=== PATIENT | female | born 1945 | race Caucasian/White ===

== ENCOUNTER 2019-10-06 20:55 | Inpatient (IN) | payer OTHER ==
[2019-10-06 22:41] LABS: BASO % 0.8 % (0-2.0); HEMATOCRIT 31.1 % (32.4-45.2); HEMOGLOBIN 9.8 GM/dL (10.7-15.3); MCH 35.1 pg (25.7-33.7); MCHC 31.6 g/dl (32.0-36.0); MEAN PLT VOLUME 8.7 fl (7.5-11.1); MONO % 5.9 % (3.8-10.2); NEUT % 87.3 % (42.8-82.8); PLATELET COUNT 365 K/MM3 (134-434); RDW 20.4 % (11.6-15.6); WHITE BLOOD COUNT 9.9 K/mm3 (4.0-10.0)
[2019-10-06 22:49] LABS: INR 1.96 (0.83-1.09); PROTHROMBIN TIME (PATIENT) 23.3 SEC (9.7-13.0)
[2019-10-06 22:52] LABS: ACTIVATED PTT 34.1 SECONDS (25.2-36.5)
[2019-10-06 22:59] LABS: VENOUS PO2 < 49 mmHg (28-48)
[2019-10-06 23:00] LABS: VENOUS BASE EXCESS 7.1 mmol/L (-2-2)
[2019-10-06 23:01] LABS: VENOUS PC02 > 100 mmHg (38-52)
[2019-10-06 23:08] LABS: MAGNESIUM 1.8 mg/dL (1.8-2.4); N-TERMINAL BNP 11440.2 pg/ml (5-125)
[2019-10-06 23:10] LABS: ALBUMIN 2.3 g/dl (3.4-5.0); BILIRUBIN,TOTAL 0.8 mg/dL (0.2-1); BLOOD UREA NITROGEN 20.6 mg/dL (7-18); CALCIUM 8.2 mg/dL (8.5-10.1); POTASSIUM 4.3 mmol/L (3.5-5.1); TOT PROT 6.2 g/dl (6.4-8.2)
[2019-10-06] MEDS ORDERED: FUROSEMIDE 40 MG/4 ML INJECTABLE VIAL IVPUSH ONE (23:18)
[2019-10-06 23:42] LABS: ARTERIAL BLD GAS O2 SATURATION 96.5 % (95-98); ARTERIAL BLOOD GAS BASE EXCESS 3.7 mmol/L (-2-2); ARTERIAL BLOOD GAS PO2 108 mmHg (80-100); ARTERIAL BLOOD GAS pH 7.24 (7.35-7.45); CARBOXYHEMOGLOBIN 2.1 % (0-2)
[2019-10-06 23:45] LABS: ARTERIAL BLOOD GAS PCO2 78.6 mmHg (35-45)
[2019-10-06 23:46] LABS: ANISOCYTOSIS 2+; OVALOCYTE 1+; TEAR DROP CELLS 1+
[2019-10-06 23:47] LABS: MACROCYTOSIS 3+; PLATELET ESTIMATE ADEQUATE
[2019-10-07] MEDS ORDERED: FUROSEMIDE 40 MG/4 ML INJECTABLE VIAL ONE ×3 (00:23→10:24)
[2019-10-07] MEDS ORDERED: FUROSEMIDE 40 MG/4 ML INJECTABLE VIAL IVPUSH ONE (00:40)
[2019-10-07 01:57] LABS: EPI CELLS 12 /uL (0-25.1); HYALINE CASTS 5 /uL (0-3.1); URINE APPEARANCE CLOUDY; URINE BACTERIA 364 /uL (0-1359); URINE BILIRUBIN 1+ (NEGATIVE); URINE COLOR DK YELLOW; URINE GLUCOSE (UA) NEGATIVE (NEGATIVE); URINE KETONE NEGATIVE (NEGATIVE); URINE LEUK ESTERASE NEGATIVE (NEGATIVE); URINE NITRITE NEGATIVE (NEGATIVE); URINE PROTEIN 2+ (NEGATIVE); URINE RBC 27 /uL (0-23.9); URINE WBC 17 /uL (0-25.8)
[2019-10-07 03:28] LABS: ARTERIAL BLOOD GAS pH 7.28 (7.35-7.45)
[2019-10-07 03:29] LABS: ARTERIAL BLD GAS O2 SATURATION 97.3 % (95-98); ARTERIAL BLOOD GAS BASE EXCESS 9.9 mmol/L (-2-2); CARBOXYHEMOGLOBIN 1.6 % (0-2)
[2019-10-07 03:49] LABS: ARTERIAL BLOOD GAS PCO2 86.7 mmHg (35-45)
[2019-10-07] MEDS ORDERED: AZITHROMYCIN IVPB 500 MG/250 ML BAG IVPB ONE ×2 (05:30→06:25)
[2019-10-07 08:29] LABS: BASO % 0.9 % (0-2.0); EOS % 1.1 % (0-4.5); HEMATOCRIT 32.7 % (32.4-45.2); HEMOGLOBIN 10.3 GM/dL (10.7-15.3); LYMPH % 7.2 % (8-40); MCH 33.5 pg (25.7-33.7); MCHC 31.4 g/dl (32.0-36.0); MEAN PLT VOLUME 8.7 fl (7.5-11.1); MONO % 13.9 % (3.8-10.2); NEUT % 76.9 % (42.8-82.8); PLATELET COUNT 331 K/MM3 (134-434); RBC 3.06 M/mm3 (3.60-5.2); RDW 20.5 % (11.6-15.6); WHITE BLOOD COUNT 11.6 K/mm3 (4.0-10.0)
[2019-10-07] MEDS ORDERED: DOPAMINE 400 MG/D5W - 400,000 MCG/250 ML INFUS.BAG IVPB SCH (09:45)
[2019-10-07 09:47] LABS: ALBUMIN 2.4 g/dl (3.4-5.0); BILIRUBIN,TOTAL 0.8 mg/dL (0.2-1); BLOOD UREA NITROGEN 22.3 mg/dL (7-18); CALCIUM 8.1 mg/dL (8.5-10.1); CREATININE 0.9 mg/dL (0.55-1.3); MAGNESIUM 1.8 mg/dL (1.8-2.4); PHOSPHOROUS 4.8 mg/dL (2.5-4.9); POTASSIUM 4.9 mmol/L (3.5-5.1); TOT PROT 6.4 g/dl (6.4-8.2)
[2019-10-07] MEDS ORDERED: FUROSEMIDE 100 MG/10 ML INJECTABLE VIAL IVPB ONE (11:00)
[2019-10-07 11:19] LABS: ARTERIAL BLOOD GAS PO2 87.7 mmHg (80-100); ARTERIAL BLOOD GAS pH 7.29 (7.35-7.45)
[2019-10-07 11:20] LABS: ARTERIAL BLD GAS O2 SATURATION 95.1 % (95-98); ARTERIAL BLOOD GAS BASE EXCESS 11 mmol/L (-2-2)
[2019-10-07] MEDS: MUPIROCIN 2% TOPICAL OINTMENT FOR DECOLONIZATION NS SCH (12:29)
[2019-10-07] MEDS: INSULIN SLIDING SCALE (NOVOLOG) 1 VIAL SQ SCH ×2 (12:29→17:10)
[2019-10-07] MEDS ORDERED: DEXTROSE 50%-WATER - 25 GM/50 ML VIAL IVPUSH PRN (21:35)
[2019-10-07] MEDS ORDERED: ENOXAPARIN NA (PORCINE) 40 MG/0.4 ML DISP.SYRIN SQ SCH (22:00)
[2019-10-08] MEDS: ENOXAPARIN NA (PORCINE) 100 MG/1 ML DISP.SYRIN SQ SCH ×2 (00:15→10:25)
[2019-10-08 07:54] LABS: INR 1.64 (0.83-1.09); PROTHROMBIN TIME (PATIENT) 19.4 SEC (9.7-13.0)
[2019-10-08 07:56] LABS: ACTIVATED PTT 39.9 SECONDS (25.2-36.5)
[2019-10-08 08:14] LABS: ALBUMIN 2.4 g/dl (3.4-5.0); BILIRUBIN,TOTAL 0.6 mg/dL (0.2-1); BLOOD UREA NITROGEN 24.5 mg/dL (7-18); CALCIUM 8.3 mg/dL (8.5-10.1); CREATININE 1.1 mg/dL (0.55-1.3); MAGNESIUM 1.9 mg/dL (1.8-2.4); POTASSIUM 4.4 mmol/L (3.5-5.1); TOT PROT 6.4 g/dl (6.4-8.2)
[2019-10-08] MEDS ORDERED: DEXTROSE 50%-WATER - 25 GM/50 ML VIAL ONE (08:58)
[2019-10-08] MEDS: MUPIROCIN 2% TOPICAL OINTMENT FOR DECOLONIZATION NS SCH ×2 (09:41→22:32)
[2019-10-08] MEDS: INSULIN SLIDING SCALE (NOVOLOG) 1 VIAL SQ SCH ×3 (09:41→16:24)
[2019-10-08] MEDS: CHLORHEXIDINE GLUCONATE 4% CLEANSER FOR DECOLONIZATION TP SCH (22:32)
[2019-10-08] MEDS: CARVEDILOL 6.25 MG TABLET (FP) PO SCH (22:32)
[2019-10-08] MEDS: APIXABAN 2.5 MG TABLET PO SCH (22:33)
[2019-10-08] MEDS: levETIRAcetam 500 MG TABLET (FP) PO SCH (22:33)
[2019-10-09 07:17] LABS: HEMOGLOBIN 9.2 GM/dL (10.7-15.3); MCH 37.8 pg (25.7-33.7); MCHC 34.2 g/dl (32.0-36.0); MEAN CELL VOLUME 110.6 fl (80-96); MEAN PLT VOLUME 8.3 fl (7.5-11.1); PLATELET COUNT 345 K/MM3 (134-434); RBC 2.44 M/mm3 (3.60-5.2); RDW 19.5 % (11.6-15.6); WHITE BLOOD COUNT 7.8 K/mm3 (4.0-10.0)
[2019-10-09 07:51] LABS: CALCIUM 8.4 mg/dL (8.5-10.1); CREATININE 1.3 mg/dL (0.55-1.3); MAGNESIUM 1.9 mg/dL (1.8-2.4); PHOSPHOROUS 3.7 mg/dL (2.5-4.9); POTASSIUM 4.1 mmol/L (3.5-5.1)
[2019-10-09] MEDS: INSULIN SLIDING SCALE (NOVOLOG) 1 VIAL SQ SCH ×3 (08:00→17:36)
[2019-10-09] MEDS: FUROSEMIDE 40 MG TABLET (FP) PO SCH (10:20)
[2019-10-09] MEDS: MUPIROCIN 2% TOPICAL OINTMENT FOR DECOLONIZATION NS SCH ×2 (10:20→21:40)
[2019-10-09] MEDS: CARVEDILOL 6.25 MG TABLET (FP) PO SCH ×2 (10:20→21:41)
[2019-10-09] MEDS: levETIRAcetam 500 MG TABLET (FP) PO SCH ×2 (10:20→21:41)
[2019-10-09] MEDS: APIXABAN 2.5 MG TABLET PO SCH ×2 (10:20→21:41)
[2019-10-09] MEDS: HYDROXYUREA 500 MG CAPSULE PO SCH (10:20)
[2019-10-09] MEDS: LINEZOLID 600 MG PREMIX BAG 600 MG/300 ML BAG IVPB SCH ×2 (11:00→21:41)
[2019-10-09] MEDS: CHLORHEXIDINE GLUCONATE 4% CLEANSER FOR DECOLONIZATION TP SCH (21:41)
[2019-10-10 07:07] LABS: HEMATOCRIT 28.8 % (32.4-45.2); HEMOGLOBIN 9.4 GM/dL (10.7-15.3); MCH 35.1 pg (25.7-33.7); MCHC 32.7 g/dl (32.0-36.0); MEAN CELL VOLUME 107.3 fl (80-96); MEAN PLT VOLUME 8.6 fl (7.5-11.1); PLATELET COUNT 338 K/MM3 (134-434); RBC 2.68 M/mm3 (3.60-5.2); RDW 19.9 % (11.6-15.6); WHITE BLOOD COUNT 6.9 K/mm3 (4.0-10.0)
[2019-10-10 07:35] LABS: ALBUMIN 2.4 g/dl (3.4-5.0); BILIRUBIN,TOTAL 0.9 mg/dL (0.2-1); CALCIUM 8.3 mg/dL (8.5-10.1); CREATININE 1.3 mg/dL (0.55-1.3); MAGNESIUM 1.8 mg/dL (1.8-2.4); POTASSIUM 4.1 mmol/L (3.5-5.1); TOT PROT 6.4 g/dl (6.4-8.2)
[2019-10-10] MEDS: INSULIN SLIDING SCALE (NOVOLOG) 1 VIAL SQ SCH ×3 (07:57→16:37)
[2019-10-10] MEDS: MUPIROCIN 2% TOPICAL OINTMENT FOR DECOLONIZATION NS SCH ×2 (09:40→22:30)
[2019-10-10] MEDS: APIXABAN 2.5 MG TABLET PO SCH ×2 (09:40→22:30)
[2019-10-10] MEDS: CARVEDILOL 6.25 MG TABLET (FP) PO SCH ×2 (09:40→22:30)
[2019-10-10] MEDS: FUROSEMIDE 40 MG TABLET (FP) PO SCH (09:41)
[2019-10-10] MEDS: HYDROXYUREA 500 MG CAPSULE PO SCH (09:41)
[2019-10-10] MEDS: levETIRAcetam 500 MG TABLET (FP) PO SCH ×2 (09:41→22:30)
[2019-10-10] MEDS ORDERED: NYSTATIN POWDER 100,000 UNITS/GM - 15 GM TOPICAL POWDER TP ONE (18:16)
[2019-10-10] MEDS: CHLORHEXIDINE GLUCONATE 4% CLEANSER FOR DECOLONIZATION TP SCH (22:30)
[2019-10-11] MEDS: INSULIN SLIDING SCALE (NOVOLOG) 1 VIAL SQ SCH ×3 (12:29→17:30)
[2019-10-11] MEDS: APIXABAN 2.5 MG TABLET PO SCH ×2 (12:38→22:20)
[2019-10-11] MEDS: HYDROXYUREA 500 MG CAPSULE PO SCH (12:39)
[2019-10-11] MEDS: CARVEDILOL 6.25 MG TABLET (FP) PO SCH ×2 (12:39→22:20)
[2019-10-11] MEDS: FUROSEMIDE 40 MG TABLET (FP) PO SCH (12:39)
[2019-10-11] MEDS: MUPIROCIN 2% TOPICAL OINTMENT FOR DECOLONIZATION NS SCH ×2 (12:41→20:20)
[2019-10-11] MEDS: LINEZOLID 600 MG PREMIX BAG 600 MG/300 ML BAG IVPB SCH ×2 (12:41→22:55)
[2019-10-11] MEDS: levETIRAcetam 500 MG TABLET (FP) PO SCH (12:42)
[2019-10-11] MEDS ORDERED: MAGNESIUM SULF 50% (8.12 MEQ/2 ML-1 GM VIAL) IVPB ONE (13:15)
[2019-10-11] MEDS: CHLORHEXIDINE GLUCONATE 4% CLEANSER FOR DECOLONIZATION TP SCH (22:20)
[2019-10-12] MEDS: INSULIN SLIDING SCALE (NOVOLOG) 1 VIAL SQ SCH ×3 (08:07→17:30)
[2019-10-12] MEDS: APIXABAN 2.5 MG TABLET PO SCH ×2 (10:23→23:01)
[2019-10-12] MEDS: FUROSEMIDE 40 MG TABLET (FP) PO SCH (10:23)
[2019-10-12] MEDS: CARVEDILOL 6.25 MG TABLET (FP) PO SCH ×2 (10:23→23:00)
[2019-10-12] MEDS: LINEZOLID 600 MG PREMIX BAG 600 MG/300 ML BAG IVPB SCH ×2 (10:24→23:03)
[2019-10-12] MEDS: HYDROXYUREA 500 MG CAPSULE PO SCH (10:25)
[2019-10-12] MEDS ORDERED: LORazepam 2 MG/ML SDV VIAL IVPUSH ONE (20:34)
[2019-10-12] MEDS ORDERED: LORazepam 2 MG/ML SDV VIAL ONE (20:46)
[2019-10-12] MEDS ORDERED: APIXABAN 2.5 MG TABLET ONE (22:49)
[2019-10-12] MEDS: MUPIROCIN 2% TOPICAL OINTMENT FOR DECOLONIZATION NS SCH (23:04)
[2019-10-12] MEDS: CHLORHEXIDINE GLUCONATE 4% CLEANSER FOR DECOLONIZATION TP SCH (23:04)
[2019-10-13 06:39] LABS: HEMATOCRIT 28.9 % (32.4-45.2); HEMOGLOBIN 9.7 GM/dL (10.7-15.3); MCH 36.5 pg (25.7-33.7); MCHC 33.5 g/dl (32.0-36.0); MEAN CELL VOLUME 108.9 fl (80-96); MEAN PLT VOLUME 8.5 fl (7.5-11.1); PLATELET COUNT 354 K/MM3 (134-434); RBC 2.66 M/mm3 (3.60-5.2); RDW 19.6 % (11.6-15.6); WHITE BLOOD COUNT 6.3 K/mm3 (4.0-10.0)
[2019-10-13] MEDS ORDERED: APIXABAN 5 MG TABLET ONE (09:02)
[2019-10-13] MEDS: INSULIN SLIDING SCALE (NOVOLOG) 1 VIAL SQ SCH (22:49)
[2019-10-13] MEDS: LINEZOLID 600 MG PREMIX BAG 600 MG/300 ML BAG IVPB SCH (22:50)
[2019-10-13] MEDS: CARVEDILOL 6.25 MG TABLET (FP) PO SCH (22:50)
[2019-10-13] MEDS: APIXABAN 2.5 MG TABLET PO SCH (22:50)
[2019-10-14] MEDS: INSULIN SLIDING SCALE (NOVOLOG) 1 VIAL SQ SCH ×4 (06:30→16:51)
[2019-10-14 09:59] LABS: BASO % 0.9 % (0-2.0); HEMATOCRIT 32.6 % (32.4-45.2); HEMOGLOBIN 10.3 GM/dL (10.7-15.3); LYMPH % 12.2 % (8-40); MCH 35.2 pg (25.7-33.7); MCHC 31.5 g/dl (32.0-36.0); MEAN CELL VOLUME 111.7 fl (80-96); MEAN PLT VOLUME 9.2 fl (7.5-11.1); MONO % 11.7 % (3.8-10.2); NEUT % 63.2 % (42.8-82.8); PLATELET COUNT 353 K/MM3 (134-434); RBC 2.92 M/mm3 (3.60-5.2); RDW 19.8 % (11.6-15.6); WHITE BLOOD COUNT 7.1 K/mm3 (4.0-10.0)
[2019-10-14 10:33] LABS: ALBUMIN 2.2 g/dl (3.4-5.0); BILIRUBIN,TOTAL 0.6 mg/dL (0.2-1); BLOOD UREA NITROGEN 34.3 mg/dL (7-18); CALCIUM 8.3 mg/dL (8.5-10.1); CREATININE 1.2 mg/dL (0.55-1.3); POTASSIUM 4.6 mmol/L (3.5-5.1); TOT PROT 6.3 g/dl (6.4-8.2)
[2019-10-14] MEDS ORDERED: PT OWN MED DRAWER 7, Y5N ONE ×5 (10:33→22:32)
[2019-10-14] MEDS: LINEZOLID 600 MG PREMIX BAG 600 MG/300 ML BAG IVPB SCH ×3 (10:43→21:36)
[2019-10-14] MEDS: CARVEDILOL 6.25 MG TABLET (FP) PO SCH ×2 (10:44→10:45)
[2019-10-14] MEDS: FUROSEMIDE 40 MG TABLET (FP) PO SCH ×2 (10:44)
[2019-10-14] MEDS: APIXABAN 2.5 MG TABLET PO SCH ×2 (10:44)
[2019-10-14] MEDS: HYDROXYUREA 500 MG CAPSULE PO SCH ×2 (10:44)
[2019-10-14 11:43] LABS: MACROCYTOSIS 2+; OVALOCYTE 1+; TEAR DROP CELLS 1+
[2019-10-14] MEDS ORDERED: PNEUMOC 13-VAL CONJ-DIP CRM/PF 0.5 ML DISP.SYRIN IM ONE (17:00)
[2019-10-14] MEDS ORDERED: HEPARIN NA (PORCINE) 5,000 UNITS/ML 1ML VIAL IVPUSH PRN ×2 (17:53)
[2019-10-14] MEDS: HEPARIN - 25,000 UNIT in SODIUM CHLORIDE 495 ML IV SCH (19:07)
[2019-10-14 19:48] LABS: INR 1.68 (0.83-1.09); PROTHROMBIN TIME (PATIENT) 19.9 SEC (9.7-13.0)
[2019-10-14] MEDS: CARVEDILOL 12.5 MG TABLET (FP) PO SCH ×2 (21:37→22:53)
[2019-10-14] MEDS ORDERED: FUROSEMIDE 40 MG TABLET (FP) PO SCH (22:00)
[2019-10-15] MEDS ORDERED: diphenhydrAMINE HCL 25 MG CAPSULE (FP) PO ONE (05:17)
[2019-10-15] MEDS ORDERED: HYDROCORTISONE 0.5% TOPICAL CREAM 30 GM TUBE TP ONE (05:20)
[2019-10-15] MEDS: FUROSEMIDE 40 MG/4 ML INJECTABLE VIAL IVPUSH SCH ×2 (06:15→14:36)
[2019-10-15] MEDS: INSULIN SLIDING SCALE (NOVOLOG) 1 VIAL SQ SCH ×3 (07:03→17:27)
[2019-10-15 10:14] LABS: HEMATOCRIT 29.7 % (32.4-45.2); HEMOGLOBIN 9.9 GM/dL (10.7-15.3); MCH 36.1 pg (25.7-33.7); MCHC 33.2 g/dl (32.0-36.0); MEAN CELL VOLUME 108.6 fl (80-96); MEAN PLT VOLUME 9.1 fl (7.5-11.1); PLATELET COUNT 325 K/MM3 (134-434); RBC 2.74 M/mm3 (3.60-5.2); RDW 19.2 % (11.6-15.6); WHITE BLOOD COUNT 6.6 K/mm3 (4.0-10.0)
[2019-10-15] MEDS: CARVEDILOL 12.5 MG TABLET (FP) PO SCH ×2 (10:20→21:48)
[2019-10-15] MEDS: HYDROXYUREA 500 MG CAPSULE PO SCH (10:20)
[2019-10-15 10:47] LABS: ALBUMIN 2.4 g/dl (3.4-5.0); CALCIUM 8.4 mg/dL (8.5-10.1); CREATININE 1.4 mg/dL (0.55-1.3); TOT PROT 6.6 g/dl (6.4-8.2)
[2019-10-15 10:48] LABS: BILIRUBIN,TOTAL 0.8 mg/dL (0.2-1)
[2019-10-15] MEDS: LINEZOLID 600 MG PREMIX BAG 600 MG/300 ML BAG IVPB SCH ×2 (11:09→21:48)
[2019-10-15] MEDS ORDERED: PT OWN MED DRAWER 7, Y5N ONE (21:31)
[2019-10-15] MEDS: HEPARIN - 25,000 UNIT in SODIUM CHLORIDE 495 ML IV SCH (21:48)
[2019-10-16] MEDS: INSULIN SLIDING SCALE (NOVOLOG) 1 VIAL SQ SCH ×3 (06:34→17:25)
[2019-10-16] MEDS: FUROSEMIDE 40 MG/4 ML INJECTABLE VIAL IVPUSH SCH ×2 (06:34→15:13)
[2019-10-16 07:25] LABS: HEMATOCRIT 28.7 % (32.4-45.2); HEMOGLOBIN 9.5 GM/dL (10.7-15.3); MCH 35.8 pg (25.7-33.7); MCHC 33.2 g/dl (32.0-36.0); MEAN CELL VOLUME 107.8 fl (80-96); MEAN PLT VOLUME 9.1 fl (7.5-11.1); PLATELET COUNT 319 K/MM3 (134-434); RBC 2.66 M/mm3 (3.60-5.2); WHITE BLOOD COUNT 5.3 K/mm3 (4.0-10.0)
[2019-10-16 08:05] LABS: ALBUMIN 2.3 g/dl (3.4-5.0); BILIRUBIN,TOTAL 0.6 mg/dL (0.2-1); BLOOD UREA NITROGEN 36.9 mg/dL (7-18); CALCIUM 8.3 mg/dL (8.5-10.1); CREATININE 1.3 mg/dL (0.55-1.3); POTASSIUM 3.9 mmol/L (3.5-5.1); TOT PROT 6.4 g/dl (6.4-8.2)
[2019-10-16] MEDS ORDERED: PT OWN MED DRAWER 7, Y5N ONE ×2 (09:23→21:39)
[2019-10-16] MEDS: CARVEDILOL 12.5 MG TABLET (FP) PO SCH ×2 (09:52→21:44)
[2019-10-16] MEDS: VALSARTAN 40 MG TABLET PO SCH (09:52)
[2019-10-16] MEDS: SPIRONOLACTONE 25 MG TABLET PO SCH ×2 (09:52→21:44)
[2019-10-16] MEDS: HYDROXYUREA 500 MG CAPSULE PO SCH (09:52)
[2019-10-16] MEDS: HEPARIN - 25,000 UNIT in SODIUM CHLORIDE 495 ML IV SCH (17:26)
[2019-10-17] MEDS: FUROSEMIDE 40 MG/4 ML INJECTABLE VIAL IVPUSH SCH ×3 (06:11→13:37)
[2019-10-17] MEDS: INSULIN SLIDING SCALE (NOVOLOG) 1 VIAL SQ SCH ×3 (07:00→17:18)
[2019-10-17 07:23] LABS: BASO % 4.3 % (0-2.0); EOS % 11.3 % (0-4.5); HEMATOCRIT 29.4 % (32.4-45.2); HEMOGLOBIN 9.5 GM/dL (10.7-15.3); LYMPH % 16.4 % (8-40); MCH 34.7 pg (25.7-33.7); MCHC 32.4 g/dl (32.0-36.0); MEAN CELL VOLUME 107.1 fl (80-96); MEAN PLT VOLUME 9.1 fl (7.5-11.1); MONO % 12.5 % (3.8-10.2); NEUT % 55.5 % (42.8-82.8); PLATELET COUNT 297 K/MM3 (134-434); RBC 2.75 M/mm3 (3.60-5.2); RDW 19.1 % (11.6-15.6); WHITE BLOOD COUNT 4.8 K/mm3 (4.0-10.0)
[2019-10-17 07:43] LABS: CREATININE 1.4 mg/dL (0.55-1.3)
[2019-10-17 07:44] LABS: ALBUMIN 2.2 g/dl (3.4-5.0); BILIRUBIN,TOTAL 0.7 mg/dL (0.2-1); CALCIUM 8.3 mg/dL (8.5-10.1); TOT PROT 6.3 g/dl (6.4-8.2)
[2019-10-17] MEDS ORDERED: PT OWN MED DRAWER 7, Y5N ONE ×3 (08:31→21:25)
[2019-10-17] MEDS: CARVEDILOL 12.5 MG TABLET (FP) PO SCH ×2 (09:37→21:37)
[2019-10-17] MEDS: HYDROXYUREA 500 MG CAPSULE PO SCH (09:38)
[2019-10-17] MEDS: SPIRONOLACTONE 25 MG TABLET PO SCH ×2 (09:38→21:37)
[2019-10-17] MEDS: VALSARTAN 40 MG TABLET PO SCH (09:42)
[2019-10-17] MEDS ORDERED: FUROSEMIDE 40 MG/4 ML INJECTABLE VIAL IVPB ONE (18:00)
[2019-10-17] MEDS: APIXABAN 5 MG TABLET PO SCH (21:37)
[2019-10-18] MEDS: FUROSEMIDE 40 MG/4 ML INJECTABLE VIAL IVPUSH SCH ×2 (05:51→13:01)
[2019-10-18] MEDS: INSULIN SLIDING SCALE (NOVOLOG) 1 VIAL SQ SCH ×3 (06:12→16:12)
[2019-10-18 07:26] LABS: HEMATOCRIT 28.5 % (32.4-45.2); HEMOGLOBIN 9.3 GM/dL (10.7-15.3); MCH 34.7 pg (25.7-33.7); MCHC 32.7 g/dl (32.0-36.0); MEAN CELL VOLUME 106.2 fl (80-96); PLATELET COUNT 263 K/MM3 (134-434); RBC 2.68 M/mm3 (3.60-5.2); RDW 18.9 % (11.6-15.6); WHITE BLOOD COUNT 5.2 K/mm3 (4.0-10.0)
[2019-10-18] MEDS: APIXABAN 5 MG TABLET PO SCH ×2 (09:21→21:46)
[2019-10-18] MEDS: CARVEDILOL 12.5 MG TABLET (FP) PO SCH ×2 (09:21→21:46)
[2019-10-18] MEDS: HYDROXYUREA 500 MG CAPSULE PO SCH (09:21)
[2019-10-18] MEDS: SPIRONOLACTONE 25 MG TABLET PO SCH ×2 (09:21→21:46)
[2019-10-19] MEDS: FUROSEMIDE 40 MG/4 ML INJECTABLE VIAL IVPUSH SCH ×2 (06:02→13:31)
[2019-10-19] MEDS ORDERED: PT OWN MED DRAWER 7, Y5N ONE (06:36)
[2019-10-19] MEDS: INSULIN SLIDING SCALE (NOVOLOG) 1 VIAL SQ SCH ×3 (06:51→19:10)
[2019-10-19 07:59] LABS: HEMATOCRIT 28.4 % (32.4-45.2); HEMOGLOBIN 9.1 GM/dL (10.7-15.3); MCH 34.9 pg (25.7-33.7); MCHC 32.1 g/dl (32.0-36.0); MEAN CELL VOLUME 108.7 fl (80-96); MEAN PLT VOLUME 9.3 fl (7.5-11.1); PLATELET COUNT 232 K/MM3 (134-434); RBC 2.61 M/mm3 (3.60-5.2); RDW 18.9 % (11.6-15.6); WHITE BLOOD COUNT 6.2 K/mm3 (4.0-10.0)
[2019-10-19 08:24] LABS: ALBUMIN 2.2 g/dl (3.4-5.0); BILIRUBIN,TOTAL 0.6 mg/dL (0.2-1); BLOOD UREA NITROGEN 45.2 mg/dL (7-18); CALCIUM 8.5 mg/dL (8.5-10.1); CREATININE 1.4 mg/dL (0.55-1.3); POTASSIUM 4.2 mmol/L (3.5-5.1); TOT PROT 6.2 g/dl (6.4-8.2)
[2019-10-19] MEDS: HYDROXYUREA 500 MG CAPSULE PO SCH (10:15)
[2019-10-19] MEDS: CARVEDILOL 12.5 MG TABLET (FP) PO SCH ×2 (10:16→22:45)
[2019-10-19] MEDS: APIXABAN 5 MG TABLET PO SCH ×2 (10:16→22:45)
[2019-10-19] MEDS: SPIRONOLACTONE 25 MG TABLET PO SCH ×2 (10:17→22:45)
[2019-10-19 17:37] LABS: ARTERIAL BLD GAS O2 SATURATION 93.1 % (95-98); ARTERIAL BLOOD GAS pH 7.28 (7.35-7.45)
[2019-10-19 17:38] LABS: ALLENS TEST POSITIVE; ARTERIAL BLOOD GAS BASE EXCESS 10.8 mmol/L (-2-2)
[2019-10-19 17:42] LABS: ARTERIAL BLOOD GAS PCO2 94.2 mmHg (35-45)
[2019-10-20 06:21] LABS: ARTERIAL BLD GAS O2 SATURATION 97.3 % (95-98); ARTERIAL BLOOD GAS BASE EXCESS 12.1 mmol/L (-2-2); ARTERIAL BLOOD GAS PO2 111 mmHg (80-100)
[2019-10-20] MEDS: INSULIN SLIDING SCALE (NOVOLOG) 1 VIAL SQ SCH ×3 (06:37→17:23)
[2019-10-20 06:44] LABS: ARTERIAL BLOOD GAS PCO2 86.2 mmHg (35-45)
[2019-10-20 07:32] LABS: HEMATOCRIT 28.3 % (32.4-45.2); HEMOGLOBIN 9.4 GM/dL (10.7-15.3); MCH 36.9 pg (25.7-33.7); MCHC 33.4 g/dl (32.0-36.0); MEAN CELL VOLUME 110.5 fl (80-96); MEAN PLT VOLUME 9.7 fl (7.5-11.1); PLATELET COUNT 222 K/MM3 (134-434); RBC 2.56 M/mm3 (3.60-5.2); RDW 19.4 % (11.6-15.6); WHITE BLOOD COUNT 6.1 K/mm3 (4.0-10.0)
[2019-10-20 07:57] LABS: ALBUMIN 2.3 g/dl (3.4-5.0); BILIRUBIN,TOTAL 0.6 mg/dL (0.2-1); BLOOD UREA NITROGEN 53.4 mg/dL (7-18); CALCIUM 8.9 mg/dL (8.5-10.1); CREATININE 1.4 mg/dL (0.55-1.3); POTASSIUM 4.3 mmol/L (3.5-5.1); TOT PROT 6.5 g/dl (6.4-8.2)
[2019-10-20] MEDS: HYDROXYUREA 500 MG CAPSULE PO SCH (09:42)
[2019-10-20] MEDS: SPIRONOLACTONE 25 MG TABLET PO SCH ×2 (09:42→23:36)
[2019-10-20] MEDS: APIXABAN 5 MG TABLET PO SCH ×2 (09:42→23:36)
[2019-10-20] MEDS: FUROSEMIDE 40 MG/4 ML INJECTABLE VIAL IVPUSH SCH (09:43)
[2019-10-20] MEDS: VALSARTAN 40 MG TABLET PO SCH (09:43)
[2019-10-20] MEDS: CARVEDILOL 12.5 MG TABLET (FP) PO SCH ×2 (09:43→23:35)
[2019-10-20 11:28] LABS: ALLENS TEST POSITIVE; ARTERIAL BLD GAS O2 SATURATION 98.6 % (95-98); ARTERIAL BLOOD GAS BASE EXCESS 12.3 mmol/L (-2-2); ARTERIAL BLOOD GAS PO2 151.5 mmHg (80-100); ARTERIAL BLOOD GAS pH 7.29 (7.35-7.45)
[2019-10-20 11:32] LABS: ARTERIAL BLOOD GAS PCO2 87.8 mmHg (35-45)
[2019-10-20] MEDS ORDERED: MUPIROCIN 2% TOPICAL OINTMENT FOR DECOLONIZATION NS SCH (12:00)
[2019-10-20] MEDS ORDERED: LACTULOSE 20 GM/30 ML UDC (FOR RECTAL USE ONLY) PR ONE (16:30)
[2019-10-20 17:10] LABS: EPI CELLS 2 /uL (0-25.1); HYALINE CASTS 4 /uL (0-3.1); URINE APPEARANCE CLOUDY; URINE BACTERIA 16 /uL (0-1359); URINE BILIRUBIN NEGATIVE (NEGATIVE); URINE COLOR YELLOW; URINE GLUCOSE (UA) NEGATIVE (NEGATIVE); URINE KETONE NEGATIVE (NEGATIVE); URINE LEUK ESTERASE 2+ (NEGATIVE); URINE NITRITE NEGATIVE (NEGATIVE); URINE PROTEIN NEGATIVE (NEGATIVE); URINE RBC 29 /uL (0-23.9); URINE UROBILINOGEN 0.2 mg/dL (0.2-1.0); URINE WBC 800 /uL (0-25.8)
[2019-10-20] MEDS ORDERED: PT OWN MED DRAWER 7, Y5N ONE ×2 (17:25→23:10)
[2019-10-20 17:37] LABS: YEAST MODERATE (NEGATIVE)
[2019-10-20 18:25] LABS: ALLENS TEST POSITIVE; ARTERIAL BLD GAS O2 SATURATION 98.4 % (95-98); ARTERIAL BLOOD GAS BASE EXCESS 16.2 mmol/L (-2-2); ARTERIAL BLOOD GAS PO2 140.1 mmHg (80-100); ARTERIAL BLOOD GAS pH 7.32 (7.35-7.45)
[2019-10-20] MEDS ORDERED: LACTULOSE 20 GM/30 ML UDC (FOR ORAL USE ONLY) PO ONE (18:34)
[2019-10-20 18:36] LABS: ARTERIAL BLOOD GAS PCO2 93.8 mmHg (35-45)
[2019-10-20] MEDS ORDERED: CHLORHEXIDINE GLUCONATE 4% CLEANSER FOR DECOLONIZATION TP SCH ×2 (22:00)
[2019-10-21 05:36] LABS: ARTERIAL BLD GAS O2 SATURATION 98.7 % (95-98); ARTERIAL BLOOD GAS PO2 146.3 mmHg (80-100); ARTERIAL BLOOD GAS pH 7.38 (7.35-7.45)
[2019-10-21 05:37] LABS: ALLENS TEST POSITIVE; ARTERIAL BLOOD GAS BASE EXCESS 19.3 mmol/L (-2-2)
[2019-10-21 05:41] LABS: ARTERIAL BLOOD GAS PCO2 82.5 mmHg (35-45)
[2019-10-21] MEDS: INSULIN SLIDING SCALE (NOVOLOG) 1 VIAL SQ SCH ×3 (06:23→17:31)
[2019-10-21 07:34] LABS: HEMATOCRIT 27.8 % (32.4-45.2); HEMOGLOBIN 9.2 GM/dL (10.7-15.3); MCH 34.9 pg (25.7-33.7); MCHC 32.9 g/dl (32.0-36.0); MEAN CELL VOLUME 106.1 fl (80-96); MEAN PLT VOLUME 9.1 fl (7.5-11.1); PLATELET COUNT 204 K/MM3 (134-434); RBC 2.62 M/mm3 (3.60-5.2); RDW 19.2 % (11.6-15.6); WHITE BLOOD COUNT 5.6 K/mm3 (4.0-10.0)
[2019-10-21 08:02] LABS: POTASSIUM 4.3 mmol/L (3.5-5.1)
[2019-10-21 08:10] LABS: ALBUMIN 2.3 g/dl (3.4-5.0); BILIRUBIN,TOTAL 0.6 mg/dL (0.2-1); BLOOD UREA NITROGEN 50.3 mg/dL (7-18); CALCIUM 8.9 mg/dL (8.5-10.1); CREATININE 1.2 mg/dL (0.55-1.3); TOT PROT 6.2 g/dl (6.4-8.2)
[2019-10-21] MEDS ORDERED: PT OWN MED DRAWER 7, Y5N ONE (09:52)
[2019-10-21] MEDS: APIXABAN 5 MG TABLET PO SCH ×2 (10:07→23:00)
[2019-10-21] MEDS: SPIRONOLACTONE 25 MG TABLET PO SCH ×2 (10:07→23:00)
[2019-10-21] MEDS: FUROSEMIDE 40 MG/4 ML INJECTABLE VIAL IVPUSH SCH (10:07)
[2019-10-21] MEDS: VALSARTAN 40 MG TABLET PO SCH (10:07)
[2019-10-21] MEDS: HYDROXYUREA 500 MG CAPSULE PO SCH (10:07)
[2019-10-21] MEDS: CARVEDILOL 12.5 MG TABLET (FP) PO SCH ×2 (10:07→23:00)
[2019-10-21] MEDS ORDERED: LACTULOSE 10 GM/15 ML BULK BOTTLE RC SCH (22:00)
[2019-10-22 05:35] LABS: ARTERIAL BLOOD GAS PCO2 59.7 mmHg (35-45)
[2019-10-22 05:36] LABS: ARTERIAL BLD GAS O2 SATURATION 99.1 % (95-98); ARTERIAL BLOOD GAS BASE EXCESS 19.2 mmol/L (-2-2); ARTERIAL BLOOD GAS PO2 158 mmHg (80-100)
[2019-10-22 05:37] LABS: ALLENS TEST POSITIVE
[2019-10-22] MEDS: INSULIN SLIDING SCALE (NOVOLOG) 1 VIAL SQ SCH ×3 (06:11→17:00)
[2019-10-22] MEDS ORDERED: PT OWN MED DRAWER 7, Y5N ONE (08:30)
[2019-10-22 08:33] LABS: HEMATOCRIT 27.7 % (32.4-45.2); MCHC 32.5 g/dl (32.0-36.0); MEAN CELL VOLUME 107.8 fl (80-96); MEAN PLT VOLUME 9.5 fl (7.5-11.1); PLATELET COUNT 210 K/MM3 (134-434); RBC 2.57 M/mm3 (3.60-5.2); RDW 19.2 % (11.6-15.6); WHITE BLOOD COUNT 6.6 K/mm3 (4.0-10.0)
[2019-10-22 08:47] LABS: ALBUMIN 2.3 g/dl (3.4-5.0); BILIRUBIN,TOTAL 0.4 mg/dL (0.2-1); BLOOD UREA NITROGEN 53.7 mg/dL (7-18); CALCIUM 9.1 mg/dL (8.5-10.1); CREATININE 1.4 mg/dL (0.55-1.3); POTASSIUM 4.4 mmol/L (3.5-5.1); TOT PROT 6.2 g/dl (6.4-8.2)
[2019-10-22] MEDS ORDERED: LACTULOSE 20 GM/30 ML UDC (FOR ORAL USE ONLY) PO ONE ×2 (09:13→18:00)
[2019-10-22] MEDS: CARVEDILOL 12.5 MG TABLET (FP) PO SCH ×2 (09:48→22:25)
[2019-10-22] MEDS: HYDROXYUREA 500 MG CAPSULE PO SCH (09:49)
[2019-10-22] MEDS: APIXABAN 5 MG TABLET PO SCH ×2 (09:49→22:25)
[2019-10-22] MEDS: VALSARTAN 40 MG TABLET PO SCH (09:49)
[2019-10-22] MEDS: FUROSEMIDE 40 MG/4 ML INJECTABLE VIAL IVPUSH SCH ×2 (09:49→17:00)
[2019-10-22] MEDS: SPIRONOLACTONE 25 MG TABLET PO SCH ×2 (09:49→22:25)
[2019-10-23] MEDS: FUROSEMIDE 40 MG/4 ML INJECTABLE VIAL IVPUSH SCH ×2 (06:29→14:15)
[2019-10-23] MEDS: INSULIN SLIDING SCALE (NOVOLOG) 1 VIAL SQ SCH ×3 (06:30→17:07)
[2019-10-23] MEDS ORDERED: PT OWN MED DRAWER 7, Y5N ONE ×2 (08:06→21:52)
[2019-10-23 08:30] LABS: HEMATOCRIT 27.1 % (32.4-45.2); MCH 35.6 pg (25.7-33.7); MCHC 33.1 g/dl (32.0-36.0); MEAN CELL VOLUME 107.4 fl (80-96); MEAN PLT VOLUME 9.8 fl (7.5-11.1); PLATELET COUNT 216 K/MM3 (134-434); RBC 2.52 M/mm3 (3.60-5.2); RDW 19.6 % (11.6-15.6); WHITE BLOOD COUNT 5.6 K/mm3 (4.0-10.0)
[2019-10-23 08:58] LABS: ALBUMIN 2.3 g/dl (3.4-5.0); BILIRUBIN,TOTAL 0.6 mg/dL (0.2-1); BLOOD UREA NITROGEN 47.5 mg/dL (7-18); CALCIUM 9.1 mg/dL (8.5-10.1); CHLORIDE 93 mmol/L (98-107); CREATININE 1.3 mg/dL (0.55-1.3); GLUCOSE,RANDOM 74 mg/dL (74-106); POTASSIUM 4.4 mmol/L (3.5-5.1); SGOT/AST 16 U/L (15-37); SGPT/ALT 9 U/L (13-61); SODIUM 142 mmol/L (136-145); TOT PROT 6.3 g/dl (6.4-8.2)
[2019-10-23 08:59] LABS: ALK PHOS 87 U/L (45-117); ANION GAP 3 MMOL/L (8-16); CO2 > 45 mmol/L (21-32)
[2019-10-23] MEDS: APIXABAN 5 MG TABLET PO SCH ×2 (09:31→22:12)
[2019-10-23] MEDS: VALSARTAN 40 MG TABLET PO SCH (09:31)
[2019-10-23] MEDS: SPIRONOLACTONE 25 MG TABLET PO SCH ×2 (09:31→22:12)
[2019-10-23] MEDS: HYDROXYUREA 500 MG CAPSULE PO SCH (09:31)
[2019-10-23] MEDS: CARVEDILOL 12.5 MG TABLET (FP) PO SCH ×2 (09:31→22:12)
[2019-10-23] MEDS ORDERED: LACTULOSE 20 GM/30 ML UDC (FOR ORAL USE ONLY) PO ONE (10:31)
[2019-10-23 16:43] LABS: ARTERIAL BLOOD GAS pH 7.35 (7.35-7.45)
[2019-10-23 16:44] LABS: ARTERIAL BLD GAS O2 SATURATION 96.4 % (95-98); ARTERIAL BLOOD GAS BASE EXCESS 18.6 mmol/L (-2-2); ARTERIAL BLOOD GAS PO2 94.8 mmHg (80-100)
[2019-10-23 16:45] LABS: ALLENS TEST POSITIVE
[2019-10-23 16:50] LABS: ARTERIAL BLOOD GAS PCO2 89.2 mmHg (35-45)
[2019-10-24] MEDS: FUROSEMIDE 40 MG/4 ML INJECTABLE VIAL IVPUSH SCH ×2 (06:50→13:29)
[2019-10-24] MEDS: INSULIN SLIDING SCALE (NOVOLOG) 1 VIAL SQ SCH ×3 (06:50→17:19)
[2019-10-24 07:42] LABS: HEMATOCRIT 26.9 % (32.4-45.2); MCH 36.1 pg (25.7-33.7); MCHC 33.3 g/dl (32.0-36.0); MEAN CELL VOLUME 108.4 fl (80-96); MEAN PLT VOLUME 9.5 fl (7.5-11.1); PLATELET COUNT 245 K/MM3 (134-434); RBC 2.48 M/mm3 (3.60-5.2); RDW 19.7 % (11.6-15.6); WHITE BLOOD COUNT 6.3 K/mm3 (4.0-10.0)
[2019-10-24 08:01] LABS: ALBUMIN 2.4 g/dl (3.4-5.0); ALK PHOS 101 U/L (45-117); BILIRUBIN,TOTAL 0.7 mg/dL (0.2-1); BLOOD UREA NITROGEN 49.3 mg/dL (7-18); CALCIUM 8.9 mg/dL (8.5-10.1); CHLORIDE 91 mmol/L (98-107); CREATININE 1.3 mg/dL (0.55-1.3); GLUCOSE,RANDOM 93 mg/dL (74-106); POTASSIUM 4.4 mmol/L (3.5-5.1); SGOT/AST 15 U/L (15-37); SGPT/ALT 9 U/L (13-61); SODIUM 142 mmol/L (136-145); TOT PROT 6.5 g/dl (6.4-8.2)
[2019-10-24 08:05] LABS: ANION GAP 6 MMOL/L (8-16); CO2 > 45 mmol/L (21-32)
[2019-10-24] MEDS: SPIRONOLACTONE 25 MG TABLET PO SCH ×2 (09:23→21:24)
[2019-10-24] MEDS: CARVEDILOL 12.5 MG TABLET (FP) PO SCH ×2 (09:23→21:24)
[2019-10-24] MEDS: HYDROXYUREA 500 MG CAPSULE PO SCH (09:24)
[2019-10-24] MEDS: APIXABAN 5 MG TABLET PO SCH ×2 (09:24→21:25)
[2019-10-24] MEDS: VALSARTAN 40 MG TABLET PO SCH (09:24)
[2019-10-24] MEDS ORDERED: PT OWN MED DRAWER 7, Y5N ONE (10:01)
[2019-10-24] MEDS: LACTULOSE 20 GM/30 ML UDC (FOR ORAL USE ONLY) PO SCH ×2 (12:15→21:24)
[2019-10-24] MEDS ORDERED: FUROSEMIDE 40 MG/4 ML INJECTABLE VIAL IVPUSH ONE (20:26)
[2019-10-24] MEDS ORDERED: METOPROLOL TARTRATE 5 MG/5 ML VIAL IVPUSH PRN (21:12)
[2019-10-24 21:19] LABS: ALLENS TEST POSITIVE; ARTERIAL BLD GAS O2 SATURATION 98.1 % (95-98); ARTERIAL BLOOD GAS BASE EXCESS 11.8 mmol/L (-2-2); ARTERIAL BLOOD GAS PO2 130.9 mmHg (80-100); ARTERIAL BLOOD GAS pH 7.29 (7.35-7.45)
[2019-10-24 21:21] LABS: ARTERIAL BLOOD GAS PCO2 87.7 mmHg (35-45)
[2019-10-24] MEDS: MUPIROCIN 2% TOPICAL OINTMENT FOR DECOLONIZATION NS SCH (21:24)
[2019-10-24] MEDS: CHLORHEXIDINE GLUCONATE 4% CLEANSER FOR DECOLONIZATION TP SCH (21:25)
[2019-10-24] MEDS: levETIRAcetam 500 MG/5 ML INJECTION VIAL IVPB SCH (21:25)
[2019-10-25] MEDS: FUROSEMIDE 40 MG/4 ML INJECTABLE VIAL IVPUSH SCH ×2 (05:00→14:45)
[2019-10-25] MEDS: HYDROXYUREA 500 MG CAPSULE PO SCH (10:18)
[2019-10-25] MEDS: CARVEDILOL 12.5 MG TABLET (FP) PO SCH ×2 (10:24→21:55)
[2019-10-25] MEDS: SPIRONOLACTONE 25 MG TABLET PO SCH ×2 (10:24→21:55)
[2019-10-25] MEDS: APIXABAN 5 MG TABLET PO SCH ×2 (10:24→21:55)
[2019-10-25] MEDS: LACTULOSE 20 GM/30 ML UDC (FOR ORAL USE ONLY) PO SCH ×2 (10:24→21:55)
[2019-10-25] MEDS: VALSARTAN 40 MG TABLET PO SCH (10:24)
[2019-10-25] MEDS: levETIRAcetam 500 MG/5 ML INJECTION VIAL IVPB SCH ×2 (10:25→21:56)
[2019-10-25] MEDS: MUPIROCIN 2% TOPICAL OINTMENT FOR DECOLONIZATION NS SCH ×2 (10:25→21:55)
[2019-10-25 11:12] LABS: BASO % 0.7 % (0-2.0); EOS % 10.3 % (0-4.5); HEMATOCRIT 29.8 % (32.4-45.2); HEMOGLOBIN 9.5 GM/dL (10.7-15.3); LYMPH % 12.8 % (8-40); MCH 34.8 pg (25.7-33.7); MCHC 31.9 g/dl (32.0-36.0); MEAN CELL VOLUME 109.1 fl (80-96); MEAN PLT VOLUME 9.4 fl (7.5-11.1); NEUT % 65.2 % (42.8-82.8); PLATELET COUNT 284 K/MM3 (134-434); RBC 2.73 M/mm3 (3.60-5.2); RDW 19.8 % (11.6-15.6)
[2019-10-25 11:31] LABS: ALBUMIN 2.4 g/dl (3.4-5.0); ALK PHOS 105 U/L (45-117); BILIRUBIN,TOTAL 0.9 mg/dL (0.2-1); BLOOD UREA NITROGEN 47.7 mg/dL (7-18); CALCIUM 9.4 mg/dL (8.5-10.1); CHLORIDE 90 mmol/L (98-107); CREATININE 1.3 mg/dL (0.55-1.3); GLUCOSE,RANDOM 97 mg/dL (74-106); MAGNESIUM 2.1 mg/dL (1.8-2.4); PHOSPHOROUS 3.9 mg/dL (2.5-4.9); POTASSIUM 4.4 mmol/L (3.5-5.1); SGOT/AST 18 U/L (15-37); SGPT/ALT 10 U/L (13-61); SODIUM 141 mmol/L (136-145); TOT PROT 6.8 g/dl (6.4-8.2)
[2019-10-25 11:36] LABS: ANION GAP 7 MMOL/L (8-16); CO2 > 45 mmol/L (21-32)
[2019-10-25 11:53] LABS: ARTERIAL BLOOD GAS PO2 112.5 mmHg (80-100)
[2019-10-25 11:54] LABS: ALLENS TEST POSITIVE; ARTERIAL BLOOD GAS BASE EXCESS 26.6 mmol/L (-2-2)
[2019-10-25 11:56] LABS: ARTERIAL BLOOD GAS PCO2 93.6 mmHg (35-45)
[2019-10-25 11:58] LABS: ARTERIAL BLD GAS O2 SATURATION 97.7 % (95-98)
[2019-10-25] MEDS: INSULIN SLIDING SCALE (NOVOLOG) 1 VIAL SQ SCH ×3 (12:00→17:57)
[2019-10-25 15:35] LABS: ANISOCYTOSIS 1+; MACROCYTOSIS 2+; PLATELET ESTIMATE NORMAL; ROULEAU 0; TARGET CELLS 1+
[2019-10-25] MEDS: CHLORHEXIDINE GLUCONATE 4% CLEANSER FOR DECOLONIZATION TP SCH (21:56)
[2019-10-26 06:19] LABS: ARTERIAL BLD GAS O2 SATURATION 95.7 % (95-98); ARTERIAL BLOOD GAS BASE EXCESS 23.5 mmol/L (-2-2); ARTERIAL BLOOD GAS PO2 82.7 mmHg (80-100)
[2019-10-26 06:24] LABS: ARTERIAL BLOOD GAS PCO2 81.6 mmHg (35-45)
[2019-10-26 06:32] LABS: HEMATOCRIT 27.5 % (32.4-45.2); HEMOGLOBIN 9.1 GM/dL (10.7-15.3); MCH 35.4 pg (25.7-33.7); MCHC 32.9 g/dl (32.0-36.0); MEAN CELL VOLUME 107.6 fl (80-96); MEAN PLT VOLUME 9.4 fl (7.5-11.1); PLATELET COUNT 303 K/MM3 (134-434); RBC 2.56 M/mm3 (3.60-5.2); RDW 19.7 % (11.6-15.6); WHITE BLOOD COUNT 7.4 K/mm3 (4.0-10.0)
[2019-10-26 06:55] LABS: ALBUMIN 2.4 g/dl (3.4-5.0); ALK PHOS 102 U/L (45-117); BILIRUBIN,TOTAL 0.8 mg/dL (0.2-1); BLOOD UREA NITROGEN 52.1 mg/dL (7-18); CALCIUM 9.4 mg/dL (8.5-10.1); CHLORIDE 88 mmol/L (98-107); CREATININE 1.4 mg/dL (0.55-1.3); GLUCOSE,RANDOM 98 mg/dL (74-106); MAGNESIUM 1.9 mg/dL (1.8-2.4); PHOSPHOROUS 3.7 mg/dL (2.5-4.9); POTASSIUM 4.2 mmol/L (3.5-5.1); SGOT/AST 17 U/L (15-37); SGPT/ALT 10 U/L (13-61); SODIUM 141 mmol/L (136-145); TOT PROT 6.7 g/dl (6.4-8.2)
[2019-10-26 06:56] LABS: ANION GAP 8 MMOL/L (8-16); CO2 > 45 mmol/L (21-32)
[2019-10-26] MEDS: FUROSEMIDE 40 MG/4 ML INJECTABLE VIAL IVPUSH SCH ×2 (06:56→14:28)
[2019-10-26] MEDS: INSULIN SLIDING SCALE (NOVOLOG) 1 VIAL SQ SCH ×3 (06:57→17:40)
[2019-10-26] MEDS ORDERED: PT OWN MED DRAWER 7, Y5N ONE ×2 (09:11→21:34)
[2019-10-26] MEDS: CARVEDILOL 12.5 MG TABLET (FP) PO SCH ×2 (09:23→23:14)
[2019-10-26] MEDS: LACTULOSE 20 GM/30 ML UDC (FOR ORAL USE ONLY) PO SCH ×2 (09:23→23:14)
[2019-10-26] MEDS: SPIRONOLACTONE 25 MG TABLET PO SCH ×2 (09:23→23:14)
[2019-10-26] MEDS: VALSARTAN 40 MG TABLET PO SCH (09:24)
[2019-10-26] MEDS: HYDROXYUREA 500 MG CAPSULE PO SCH (09:24)
[2019-10-26] MEDS: APIXABAN 5 MG TABLET PO SCH ×2 (09:24→23:14)
[2019-10-26] MEDS: levETIRAcetam 500 MG/5 ML INJECTION VIAL IVPB SCH (09:25)
[2019-10-26] MEDS: MUPIROCIN 2% TOPICAL OINTMENT FOR DECOLONIZATION NS SCH (10:20)
[2019-10-26] MEDS: levETIRAcetam 500 MG TABLET (FP) PO SCH ×2 (12:05→23:13)
[2019-10-27] MEDS ORDERED: METOPROLOL TARTRATE 5 MG/5 ML VIAL IVPUSH PRN (00:51)
[2019-10-27 07:08] LABS: ALLENS TEST POSITIVE; ARTERIAL BLOOD GAS PO2 63.2 mmHg (80-100); ARTERIAL BLOOD GAS pH 7.46 (7.35-7.45)
[2019-10-27 07:11] LABS: ARTERIAL BLOOD GAS PCO2 77.3 mmHg (35-45)
[2019-10-27] MEDS: INSULIN SLIDING SCALE (NOVOLOG) 1 VIAL SQ SCH ×3 (08:08→17:15)
[2019-10-27] MEDS: FUROSEMIDE 40 MG/4 ML INJECTABLE VIAL IVPUSH SCH ×2 (08:08→14:57)
[2019-10-27 08:46] LABS: HEMATOCRIT 28.4 % (32.4-45.2); HEMOGLOBIN 9.5 GM/dL (10.7-15.3); MCH 36.1 pg (25.7-33.7); MCHC 33.5 g/dl (32.0-36.0); MEAN CELL VOLUME 107.7 fl (80-96); MEAN PLT VOLUME 9.5 fl (7.5-11.1); PLATELET COUNT 405 K/MM3 (134-434); RBC 2.63 M/mm3 (3.60-5.2); RDW 20.2 % (11.6-15.6); WHITE BLOOD COUNT 8.8 K/mm3 (4.0-10.0)
[2019-10-27 09:14] LABS: BLOOD UREA NITROGEN 51.5 mg/dL (7-18); CALCIUM 9.6 mg/dL (8.5-10.1); CHLORIDE 87 mmol/L (98-107); CREATININE 1.4 mg/dL (0.55-1.3); GLUCOSE,RANDOM 113 mg/dL (74-106); MAGNESIUM 2.1 mg/dL (1.8-2.4); POTASSIUM 4.2 mmol/L (3.5-5.1); SODIUM 140 mmol/L (136-145)
[2019-10-27 09:18] LABS: ANION GAP 9 MMOL/L (8-16); CO2 > 45 mmol/L (21-32)
[2019-10-27] MEDS ORDERED: PT OWN MED DRAWER 7, Y5N ONE (09:59)
[2019-10-27] MEDS ORDERED: MUPIROCIN 2% TOPICAL OINTMENT FOR DECOLONIZATION NS SCH (10:00)
[2019-10-27] MEDS ORDERED: CARVEDILOL 12.5 MG TABLET (FP) PO SCH (10:00)
[2019-10-27] MEDS: HYDROXYUREA 500 MG CAPSULE PO SCH (10:39)
[2019-10-27] MEDS: VALSARTAN 40 MG TABLET PO SCH (10:39)
[2019-10-27] MEDS: LACTULOSE 20 GM/30 ML UDC (FOR ORAL USE ONLY) PO SCH ×2 (10:39→21:12)
[2019-10-27] MEDS: levETIRAcetam 500 MG TABLET (FP) PO SCH ×2 (10:39→21:12)
[2019-10-27] MEDS: APIXABAN 5 MG TABLET PO SCH ×2 (10:40→21:12)
[2019-10-27] MEDS: SPIRONOLACTONE 25 MG TABLET PO SCH ×2 (10:40→21:12)
[2019-10-27] MEDS: CHLORHEXIDINE GLUCONATE 4% CLEANSER FOR DECOLONIZATION TP SCH (11:32)
[2019-10-27] MEDS: MUPIROCIN 2% TOPICAL OINTMENT FOR DECOLONIZATION NS SCH (11:32)
[2019-10-27] MEDS: ZINC OXIDE/PETROLATUM,WHITE 1 APPLIC OINT...G. TP SCH (21:12)
[2019-10-27] MEDS: NYSTATIN 100,000 UNIT/GM TOPICAL CREAM 15 GM TUBE TP SCH (21:12)
[2019-10-27] MEDS: CARVEDILOL 25 MG TABLET (FP) PO SCH (21:12)
[2019-10-27] MEDS ORDERED: CHLORHEXIDINE GLUCONATE 4% CLEANSER FOR DECOLONIZATION TP SCH (22:00)
[2019-10-28] MEDS: INSULIN SLIDING SCALE (NOVOLOG) 1 VIAL SQ SCH ×3 (06:07→16:53)
[2019-10-28] MEDS: FUROSEMIDE 40 MG/4 ML INJECTABLE VIAL IVPUSH SCH ×2 (06:22→13:27)
[2019-10-28] MEDS ORDERED: PT OWN MED DRAWER 7, Y5N ONE (09:11)
[2019-10-28] MEDS: ZINC OXIDE/PETROLATUM,WHITE 1 APPLIC OINT...G. TP SCH ×2 (09:15→21:34)
[2019-10-28] MEDS: VALSARTAN 40 MG TABLET PO SCH (09:15)
[2019-10-28] MEDS: CARVEDILOL 25 MG TABLET (FP) PO SCH ×2 (09:15→21:34)
[2019-10-28] MEDS: levETIRAcetam 500 MG TABLET (FP) PO SCH ×2 (09:15→21:34)
[2019-10-28] MEDS: LACTULOSE 20 GM/30 ML UDC (FOR ORAL USE ONLY) PO SCH ×2 (09:15→21:34)
[2019-10-28] MEDS: NYSTATIN 100,000 UNIT/GM TOPICAL CREAM 15 GM TUBE TP SCH ×2 (09:15→21:34)
[2019-10-28] MEDS: HYDROXYUREA 500 MG CAPSULE PO SCH (09:15)
[2019-10-28] MEDS: SPIRONOLACTONE 25 MG TABLET PO SCH ×2 (09:15→21:34)
[2019-10-28] MEDS: APIXABAN 5 MG TABLET PO SCH ×2 (09:15→21:34)
[2019-10-28 11:52] LABS: HEMATOCRIT 31.4 % (32.4-45.2); HEMOGLOBIN 10.1 GM/dL (10.7-15.3); MCH 33.8 pg (25.7-33.7); MCHC 32.2 g/dl (32.0-36.0); MEAN CELL VOLUME 104.9 fl (80-96); MEAN PLT VOLUME 9.3 fl (7.5-11.1); PLATELET COUNT 457 K/MM3 (134-434); RDW 20.7 % (11.6-15.6); WHITE BLOOD COUNT 7.8 K/mm3 (4.0-10.0)
[2019-10-28 12:19] LABS: ALBUMIN 2.5 g/dl (3.4-5.0); ALK PHOS 115 U/L (45-117); BILIRUBIN,TOTAL 0.9 mg/dL (0.2-1); BLOOD UREA NITROGEN 53.2 mg/dL (7-18); CALCIUM 9.9 mg/dL (8.5-10.1); CHLORIDE 87 mmol/L (98-107); CREATININE 1.4 mg/dL (0.55-1.3); GLUCOSE,RANDOM 181 mg/dL (74-106); PHOSPHOROUS 3.4 mg/dL (2.5-4.9); POTASSIUM 4.9 mmol/L (3.5-5.1); SGOT/AST 19 U/L (15-37); SGPT/ALT 11 U/L (13-61); SODIUM 138 mmol/L (136-145); TOT PROT 7.4 g/dl (6.4-8.2)
[2019-10-28 12:20] LABS: ANION GAP 6 MMOL/L (8-16); CO2 > 45 mmol/L (21-32)
[2019-10-28] MEDS ORDERED: ALBUTEROL SO4 0.083% IH SOL 2.5 MG/3 ML VIAL.NEB. NEB PRN (13:44)
[2019-10-28] MEDS: ALBUTEROL SO4 2.5/IPRATROPIUM 0.5 INH SOL 3 ML VIAL.NEB. NEB SCH ×2 (15:40→20:11)
[2019-10-29] MEDS: FUROSEMIDE 40 MG/4 ML INJECTABLE VIAL IVPUSH SCH ×2 (05:25→13:32)
[2019-10-29] MEDS: INSULIN SLIDING SCALE (NOVOLOG) 1 VIAL SQ SCH ×3 (06:04→16:43)
[2019-10-29 06:57] LABS: HEMATOCRIT 28.2 % (32.4-45.2); HEMOGLOBIN 9.3 GM/dL (10.7-15.3); MCH 34.4 pg (25.7-33.7); MCHC 32.8 g/dl (32.0-36.0); MEAN CELL VOLUME 104.7 fl (80-96); MEAN PLT VOLUME 9.3 fl (7.5-11.1); PLATELET COUNT 414 K/MM3 (134-434); RBC 2.69 M/mm3 (3.60-5.2); RDW 20.1 % (11.6-15.6); WHITE BLOOD COUNT 8.2 K/mm3 (4.0-10.0)
[2019-10-29 07:18] LABS: BLOOD UREA NITROGEN 54.9 mg/dL (7-18); CALCIUM 9.5 mg/dL (8.5-10.1); CHLORIDE 86 mmol/L (98-107); CREATININE 1.3 mg/dL (0.55-1.3); GLUCOSE,RANDOM 108 mg/dL (74-106); PHOSPHOROUS 4.1 mg/dL (2.5-4.9); POTASSIUM 4.2 mmol/L (3.5-5.1); SODIUM 139 mmol/L (136-145)
[2019-10-29 07:23] LABS: ANION GAP 8 MMOL/L (8-16); CO2 > 45 mmol/L (21-32)
[2019-10-29] MEDS: ALBUTEROL SO4 2.5/IPRATROPIUM 0.5 INH SOL 3 ML VIAL.NEB. NEB SCH ×4 (08:51→20:30)
[2019-10-29] MEDS: APIXABAN 5 MG TABLET PO SCH ×2 (09:00→21:12)
[2019-10-29] MEDS: SPIRONOLACTONE 25 MG TABLET PO SCH ×2 (09:00→21:11)
[2019-10-29] MEDS: levETIRAcetam 500 MG TABLET (FP) PO SCH ×2 (09:00→21:11)
[2019-10-29] MEDS: NYSTATIN 100,000 UNIT/GM TOPICAL CREAM 15 GM TUBE TP SCH ×2 (09:00→21:12)
[2019-10-29] MEDS: HYDROXYUREA 500 MG CAPSULE PO SCH (09:00)
[2019-10-29] MEDS: LACTULOSE 20 GM/30 ML UDC (FOR ORAL USE ONLY) PO SCH ×2 (09:00→21:12)
[2019-10-29] MEDS: ZINC OXIDE/PETROLATUM,WHITE 1 APPLIC OINT...G. TP SCH ×2 (09:00→21:12)
[2019-10-29] MEDS: CARVEDILOL 25 MG TABLET (FP) PO SCH ×2 (09:00→21:12)
[2019-10-29] MEDS: VALSARTAN 40 MG TABLET PO SCH (09:00)
[2019-10-30] MEDS: FUROSEMIDE 40 MG/4 ML INJECTABLE VIAL IVPUSH SCH ×2 (05:54→13:34)
[2019-10-30] MEDS: INSULIN SLIDING SCALE (NOVOLOG) 1 VIAL SQ SCH ×3 (06:05→16:58)
[2019-10-30 07:13] LABS: BLOOD UREA NITROGEN 60.1 mg/dL (7-18); CHLORIDE 87 mmol/L (98-107); CREATININE 1.6 mg/dL (0.55-1.3); GLUCOSE,RANDOM 92 mg/dL (74-106); MAGNESIUM 2.1 mg/dL (1.8-2.4); PHOSPHOROUS 4.7 mg/dL (2.5-4.9); SODIUM 139 mmol/L (136-145)
[2019-10-30 07:19] LABS: ANION GAP 6 MMOL/L (8-16); CO2 > 45 mmol/L (21-32)
[2019-10-30] MEDS: ALBUTEROL SO4 2.5/IPRATROPIUM 0.5 INH SOL 3 ML VIAL.NEB. NEB SCH ×4 (08:25→20:27)
[2019-10-30] MEDS ORDERED: PT OWN MED DRAWER 7, Y5N ONE ×2 (10:06→17:36)
[2019-10-30] MEDS: HYDROXYUREA 500 MG CAPSULE PO SCH (10:12)
[2019-10-30] MEDS: NYSTATIN 100,000 UNIT/GM TOPICAL CREAM 15 GM TUBE TP SCH ×2 (10:12→21:01)
[2019-10-30] MEDS: VALSARTAN 40 MG TABLET PO SCH (10:12)
[2019-10-30] MEDS: SPIRONOLACTONE 25 MG TABLET PO SCH (10:12)
[2019-10-30] MEDS: LACTULOSE 20 GM/30 ML UDC (FOR ORAL USE ONLY) PO SCH ×2 (10:12→21:00)
[2019-10-30] MEDS: CARVEDILOL 25 MG TABLET (FP) PO SCH ×2 (10:12→21:00)
[2019-10-30] MEDS: APIXABAN 5 MG TABLET PO SCH ×2 (10:12→21:00)
[2019-10-30] MEDS: ZINC OXIDE/PETROLATUM,WHITE 1 APPLIC OINT...G. TP SCH ×2 (10:12→21:01)
[2019-10-30] MEDS: levETIRAcetam 500 MG TABLET (FP) PO SCH ×2 (10:12→21:01)
[2019-10-30] MEDS ORDERED: SODIUM ZIRCONIUM CYCLOSILICATE (LOKELMA) 5 GM PACKET PO ONE (16:27)
[2019-10-30 19:07] LABS: ARTERIAL BLOOD GAS pH 7.47 (7.35-7.45)
[2019-10-30 19:08] LABS: ARTERIAL BLD GAS O2 SATURATION 83.3 % (95-98); ARTERIAL BLOOD GAS BASE EXCESS 22.9 mmol/L (-2-2)
[2019-10-30 19:10] LABS: ARTERIAL BLOOD GAS PCO2 70.7 mmHg (35-45)
[2019-10-30 19:12] LABS: ARTERIAL BLOOD GAS PO2 < 49 mmHg (80-100)
[2019-10-31] MEDS: FUROSEMIDE 40 MG/4 ML INJECTABLE VIAL IVPUSH SCH ×2 (06:02→13:09)
[2019-10-31] MEDS: INSULIN SLIDING SCALE (NOVOLOG) 1 VIAL SQ SCH ×3 (06:02→16:30)
[2019-10-31 06:48] LABS: HEMATOCRIT 26.6 % (32.4-45.2); HEMOGLOBIN 8.9 GM/dL (10.7-15.3); WHITE BLOOD COUNT 7.4 K/mm3 (4.0-10.0)
[2019-10-31 06:49] LABS: MCH 35.5 pg (25.7-33.7); MCHC 33.5 g/dl (32.0-36.0); MEAN CELL VOLUME 106.1 fl (80-96); MEAN PLT VOLUME 8.7 fl (7.5-11.1); PLATELET COUNT 405 K/MM3 (134-434); RDW 19.7 % (11.6-15.6)
[2019-10-31 07:13] LABS: BLOOD UREA NITROGEN 56.1 mg/dL (7-18); CALCIUM 8.9 mg/dL (8.5-10.1); CHLORIDE 88 mmol/L (98-107); CREATININE 1.5 mg/dL (0.55-1.3); GLUCOSE,RANDOM 91 mg/dL (74-106); POTASSIUM 4.1 mmol/L (3.5-5.1); SODIUM 140 mmol/L (136-145)
[2019-10-31 07:26] LABS: ANION GAP 7 MMOL/L (8-16); CO2 > 45 mmol/L (21-32)
[2019-10-31] MEDS: ALBUTEROL SO4 2.5/IPRATROPIUM 0.5 INH SOL 3 ML VIAL.NEB. NEB SCH ×4 (07:27→20:30)
[2019-10-31] MEDS ORDERED: PT OWN MED DRAWER 7, Y5N ONE (09:02)
[2019-10-31] MEDS: LACTULOSE 20 GM/30 ML UDC (FOR ORAL USE ONLY) PO SCH ×2 (09:34→22:11)
[2019-10-31] MEDS: HYDROXYUREA 500 MG CAPSULE PO SCH (09:34)
[2019-10-31] MEDS: APIXABAN 5 MG TABLET PO SCH ×2 (09:34→22:11)
[2019-10-31] MEDS: NYSTATIN 100,000 UNIT/GM TOPICAL CREAM 15 GM TUBE TP SCH ×2 (09:34→22:11)
[2019-10-31] MEDS: CARVEDILOL 25 MG TABLET (FP) PO SCH ×2 (09:34→22:11)
[2019-10-31] MEDS: levETIRAcetam 500 MG TABLET (FP) PO SCH ×2 (09:34→22:11)
[2019-10-31] MEDS: VALSARTAN 40 MG TABLET PO SCH (09:34)
[2019-10-31] MEDS: ZINC OXIDE/PETROLATUM,WHITE 1 APPLIC OINT...G. TP SCH ×2 (09:35→22:11)
[2019-10-31] MEDS: SPIRONOLACTONE 25 MG TABLET PO SCH (16:44)
[2019-11-01] MEDS: FUROSEMIDE 40 MG/4 ML INJECTABLE VIAL IVPUSH SCH ×2 (06:02→13:03)
[2019-11-01] MEDS: INSULIN SLIDING SCALE (NOVOLOG) 1 VIAL SQ SCH ×3 (06:02→16:27)
[2019-11-01 07:29] LABS: HEMATOCRIT 26.9 % (32.4-45.2); HEMOGLOBIN 9.2 GM/dL (10.7-15.3); MCH 37.2 pg (25.7-33.7); MCHC 34.1 g/dl (32.0-36.0); MEAN CELL VOLUME 108.9 fl (80-96); MEAN PLT VOLUME 8.9 fl (7.5-11.1); PLATELET COUNT 422 K/MM3 (134-434); RBC 2.47 M/mm3 (3.60-5.2); RDW 19.9 % (11.6-15.6); WHITE BLOOD COUNT 7.7 K/mm3 (4.0-10.0)
[2019-11-01 08:05] LABS: ALBUMIN 2.2 g/dl (3.4-5.0); ALK PHOS 104 U/L (45-117); BILIRUBIN,TOTAL 0.8 mg/dL (0.2-1); BLOOD UREA NITROGEN 57.4 mg/dL (7-18); CALCIUM 8.7 mg/dL (8.5-10.1); CHLORIDE 88 mmol/L (98-107); CREATININE 1.4 mg/dL (0.55-1.3); GLUCOSE,RANDOM 87 mg/dL (74-106); POTASSIUM 4.8 mmol/L (3.5-5.1); SGOT/AST 25 U/L (15-37); SGPT/ALT 11 U/L (13-61); SODIUM 140 mmol/L (136-145); TOT PROT 6.8 g/dl (6.4-8.2)
[2019-11-01 08:16] LABS: ANION GAP 6 MMOL/L (8-16); CO2 > 45 mmol/L (21-32)
[2019-11-01] MEDS: ALBUTEROL SO4 2.5/IPRATROPIUM 0.5 INH SOL 3 ML VIAL.NEB. NEB SCH ×4 (08:26→20:25)
[2019-11-01] MEDS ORDERED: PT OWN MED DRAWER 7, Y5N ONE (09:55)
[2019-11-01] MEDS: CARVEDILOL 25 MG TABLET (FP) PO SCH ×2 (09:56→21:37)
[2019-11-01] MEDS: APIXABAN 5 MG TABLET PO SCH ×2 (09:56→21:37)
[2019-11-01] MEDS: SPIRONOLACTONE 25 MG TABLET PO SCH (09:57)
[2019-11-01] MEDS: levETIRAcetam 500 MG TABLET (FP) PO SCH ×2 (09:57→21:37)
[2019-11-01] MEDS: HYDROXYUREA 500 MG CAPSULE PO SCH (09:59)
[2019-11-01] MEDS: NYSTATIN 100,000 UNIT/GM TOPICAL CREAM 15 GM TUBE TP SCH ×2 (10:08→21:37)
[2019-11-01] MEDS: ZINC OXIDE/PETROLATUM,WHITE 1 APPLIC OINT...G. TP SCH ×2 (10:08→21:37)
[2019-11-01] MEDS: LACTULOSE 20 GM/30 ML UDC (FOR ORAL USE ONLY) PO SCH ×2 (10:09→21:37)
[2019-11-01] MEDS: VALSARTAN 40 MG TABLET PO SCH (10:09)
[2019-11-02] MEDS: FUROSEMIDE 40 MG/4 ML INJECTABLE VIAL IVPUSH SCH ×2 (05:22→14:53)
[2019-11-02] MEDS: INSULIN SLIDING SCALE (NOVOLOG) 1 VIAL SQ SCH ×3 (06:40→16:56)
[2019-11-02 08:00] LABS: BASO % 1.2 % (0-2.0); EOS % 9.4 % (0-4.5); HEMATOCRIT 26.5 % (32.4-45.2); HEMOGLOBIN 8.9 GM/dL (10.7-15.3); LYMPH % 10.1 % (8-40); MCH 35.6 pg (25.7-33.7); MCHC 33.7 g/dl (32.0-36.0); MEAN CELL VOLUME 105.9 fl (80-96); MEAN PLT VOLUME 8.8 fl (7.5-11.1); MONO % 9.7 % (3.8-10.2); NEUT % 69.6 % (42.8-82.8); PLATELET COUNT 448 K/MM3 (134-434); RDW 19.5 % (11.6-15.6); WHITE BLOOD COUNT 9.1 K/mm3 (4.0-10.0)
[2019-11-02] MEDS: ALBUTEROL SO4 2.5/IPRATROPIUM 0.5 INH SOL 3 ML VIAL.NEB. NEB SCH ×2 (08:00→13:00)
[2019-11-02 08:15] LABS: ALBUMIN 2.4 g/dl (3.4-5.0); BILIRUBIN,TOTAL 0.7 mg/dL (0.2-1); BLOOD UREA NITROGEN 63.8 mg/dL (7-18); CALCIUM 9.2 mg/dL (8.5-10.1); CREATININE 1.5 mg/dL (0.55-1.3); MAGNESIUM 2.2 mg/dL (1.8-2.4); PHOSPHOROUS 4.1 mg/dL (2.5-4.9); POTASSIUM 4.2 mmol/L (3.5-5.1)
[2019-11-02] MEDS ORDERED: PT OWN MED DRAWER 7, Y5N ONE (10:51)
[2019-11-02] MEDS: CARVEDILOL 25 MG TABLET (FP) PO SCH ×3 (10:59→22:04)
[2019-11-02] MEDS: VALSARTAN 40 MG TABLET PO SCH (10:59)
[2019-11-02] MEDS: APIXABAN 5 MG TABLET PO SCH ×2 (10:59→22:03)
[2019-11-02] MEDS: SPIRONOLACTONE 25 MG TABLET PO SCH (10:59)
[2019-11-02] MEDS: NYSTATIN 100,000 UNIT/GM TOPICAL CREAM 15 GM TUBE TP SCH ×2 (10:59→22:04)
[2019-11-02] MEDS: HYDROXYUREA 500 MG CAPSULE PO SCH (10:59)
[2019-11-02] MEDS: LACTULOSE 20 GM/30 ML UDC (FOR ORAL USE ONLY) PO SCH ×2 (10:59→22:03)
[2019-11-02] MEDS: levETIRAcetam 500 MG TABLET (FP) PO SCH ×2 (10:59→22:03)
[2019-11-02] MEDS: ZINC OXIDE/PETROLATUM,WHITE 1 APPLIC OINT...G. TP SCH ×2 (11:00→22:04)
[2019-11-02 11:26] LABS: ANISOCYTOSIS 1+; MACROCYTOSIS 1+; PLATELET ESTIMATE NORMAL
[2019-11-02 15:33] LABS: ALLENS TEST POSITIVE; ARTERIAL BLD GAS O2 SATURATION 96.1 % (95-98); ARTERIAL BLOOD GAS BASE EXCESS 19.9 mmol/L (-2-2); ARTERIAL BLOOD GAS PCO2 69.2 mmHg (35-45); ARTERIAL BLOOD GAS PO2 82.8 mmHg (80-100); ARTERIAL BLOOD GAS pH 7.45 (7.35-7.45)
[2019-11-03] MEDS: FUROSEMIDE 40 MG/4 ML INJECTABLE VIAL IVPUSH SCH ×2 (05:40→13:18)
[2019-11-03] MEDS: INSULIN SLIDING SCALE (NOVOLOG) 1 VIAL SQ SCH ×3 (06:02→16:45)
[2019-11-03 06:43] LABS: BASO % 1.2 % (0-2.0); EOS % 13.2 % (0-4.5); HEMATOCRIT 27.6 % (32.4-45.2); HEMOGLOBIN 9.2 GM/dL (10.7-15.3); LYMPH % 10.7 % (8-40); MCH 35.5 pg (25.7-33.7); MCHC 33.2 g/dl (32.0-36.0); MEAN CELL VOLUME 106.9 fl (80-96); MEAN PLT VOLUME 8.9 fl (7.5-11.1); MONO % 10.8 % (3.8-10.2); NEUT % 64.1 % (42.8-82.8); PLATELET COUNT 429 K/MM3 (134-434); RBC 2.58 M/mm3 (3.60-5.2); RDW 19.9 % (11.6-15.6); WHITE BLOOD COUNT 6.6 K/mm3 (4.0-10.0)
[2019-11-03 06:50] LABS: ALBUMIN 2.4 g/dl (3.4-5.0); ALK PHOS 108 U/L (45-117); BILIRUBIN,TOTAL 0.8 mg/dL (0.2-1); CALCIUM 8.9 mg/dL (8.5-10.1); CHLORIDE 90 mmol/L (98-107); CREATININE 1.5 mg/dL (0.55-1.3); GLUCOSE,RANDOM 98 mg/dL (74-106); MAGNESIUM 2.2 mg/dL (1.8-2.4); PHOSPHOROUS 4.4 mg/dL (2.5-4.9); POTASSIUM 3.8 mmol/L (3.5-5.1); SGOT/AST 18 U/L (15-37); SGPT/ALT 13 U/L (13-61); SODIUM 140 mmol/L (136-145); TOT PROT 7.1 g/dl (6.4-8.2)
[2019-11-03 06:53] LABS: ANION GAP 5 MMOL/L (8-16); CO2 > 45 mmol/L (21-32)
[2019-11-03] MEDS ORDERED: PT OWN MED DRAWER 7, Y5N ONE (08:47)
[2019-11-03] MEDS: SPIRONOLACTONE 25 MG TABLET PO SCH (09:05)
[2019-11-03] MEDS: LACTULOSE 20 GM/30 ML UDC (FOR ORAL USE ONLY) PO SCH ×2 (09:05→21:07)
[2019-11-03] MEDS: levETIRAcetam 500 MG TABLET (FP) PO SCH ×2 (09:06→21:07)
[2019-11-03] MEDS: APIXABAN 5 MG TABLET PO SCH ×2 (09:06→21:07)
[2019-11-03] MEDS: ZINC OXIDE/PETROLATUM,WHITE 1 APPLIC OINT...G. TP SCH ×2 (09:06→21:07)
[2019-11-03] MEDS: NYSTATIN 100,000 UNIT/GM TOPICAL CREAM 15 GM TUBE TP SCH ×2 (09:06→21:07)
[2019-11-03] MEDS: VALSARTAN 40 MG TABLET PO SCH (09:06)
[2019-11-03] MEDS: HYDROXYUREA 500 MG CAPSULE PO SCH (09:06)
[2019-11-03] MEDS: CARVEDILOL 25 MG TABLET (FP) PO SCH ×2 (09:06→21:07)
[2019-11-03] MEDS ORDERED: ACETAMINOPHEN 500 MG TABLET (FP) PO PRN (22:11)
[2019-11-03] MEDS ORDERED: MORPHINE SULFATE 2 MG/ML VIAL IVPUSH ONE (22:21)
[2019-11-04] MEDS: FUROSEMIDE 40 MG/4 ML INJECTABLE VIAL IVPUSH SCH ×2 (05:50→15:38)
[2019-11-04] MEDS: INSULIN SLIDING SCALE (NOVOLOG) 1 VIAL SQ SCH ×3 (06:17→16:40)
[2019-11-04 06:56] LABS: BASO % 1.1 % (0-2.0); HEMATOCRIT 26.8 % (32.4-45.2); HEMOGLOBIN 9.1 GM/dL (10.7-15.3); LYMPH % 15.6 % (8-40); MCH 36.6 pg (25.7-33.7); MCHC 33.9 g/dl (32.0-36.0); MEAN CELL VOLUME 107.9 fl (80-96); MEAN PLT VOLUME 8.9 fl (7.5-11.1); NEUT % 57.3 % (42.8-82.8); PLATELET COUNT 456 K/MM3 (134-434); RBC 2.49 M/mm3 (3.60-5.2); RDW 19.4 % (11.6-15.6); WHITE BLOOD COUNT 6.4 K/mm3 (4.0-10.0)
[2019-11-04 07:22] LABS: ALBUMIN 2.3 g/dl (3.4-5.0); BILIRUBIN,TOTAL 0.7 mg/dL (0.2-1); BLOOD UREA NITROGEN 63.4 mg/dL (7-18); CREATININE 1.4 mg/dL (0.55-1.3); MAGNESIUM 2.2 mg/dL (1.8-2.4); PHOSPHOROUS 4.4 mg/dL (2.5-4.9); POTASSIUM 4.1 mmol/L (3.5-5.1); TOT PROT 6.8 g/dl (6.4-8.2)
[2019-11-04] MEDS ORDERED: PT OWN MED DRAWER 7, Y5N ONE (08:59)
[2019-11-04] MEDS: CARVEDILOL 25 MG TABLET (FP) PO SCH ×2 (09:36→21:20)
[2019-11-04] MEDS: LACTULOSE 20 GM/30 ML UDC (FOR ORAL USE ONLY) PO SCH ×2 (09:36→21:20)
[2019-11-04] MEDS: SPIRONOLACTONE 25 MG TABLET PO SCH (09:36)
[2019-11-04] MEDS: APIXABAN 5 MG TABLET PO SCH ×2 (09:37→21:20)
[2019-11-04] MEDS: HYDROXYUREA 500 MG CAPSULE PO SCH (09:37)
[2019-11-04] MEDS: levETIRAcetam 500 MG TABLET (FP) PO SCH ×2 (09:37→21:20)
[2019-11-04] MEDS: VALSARTAN 40 MG TABLET PO SCH (09:37)
[2019-11-04] MEDS: ZINC OXIDE/PETROLATUM,WHITE 1 APPLIC OINT...G. TP SCH ×2 (12:39→21:21)
[2019-11-04] MEDS: NYSTATIN 100,000 UNIT/GM TOPICAL CREAM 15 GM TUBE TP SCH ×2 (12:39→21:20)
[2019-11-05] MEDS: INSULIN SLIDING SCALE (NOVOLOG) 1 VIAL SQ SCH ×3 (06:28→15:38)
[2019-11-05] MEDS: FUROSEMIDE 40 MG/4 ML INJECTABLE VIAL IVPUSH SCH ×2 (06:28→14:45)
[2019-11-05 06:52] LABS: ARTERIAL BLD GAS O2 SATURATION 98.4 % (95-98); ARTERIAL BLOOD GAS PCO2 63.8 mmHg (35-45); ARTERIAL BLOOD GAS PO2 121.3 mmHg (80-100); ARTERIAL BLOOD GAS pH 7.46 (7.35-7.45)
[2019-11-05 06:53] LABS: ALLENS TEST POSITIVE; ARTERIAL BLOOD GAS BASE EXCESS 19.1 mmol/L (-2-2)
[2019-11-05] MEDS ORDERED: PT OWN MED DRAWER 7, Y5N ONE ×4 (10:19→20:59)
[2019-11-05] MEDS: SPIRONOLACTONE 25 MG TABLET PO SCH (10:24)
[2019-11-05] MEDS: LACTULOSE 20 GM/30 ML UDC (FOR ORAL USE ONLY) PO SCH ×2 (10:24→21:03)
[2019-11-05] MEDS: APIXABAN 5 MG TABLET PO SCH ×2 (10:25→21:03)
[2019-11-05] MEDS: CARVEDILOL 25 MG TABLET (FP) PO SCH ×2 (10:25→21:03)
[2019-11-05] MEDS: VALSARTAN 40 MG TABLET PO SCH (10:25)
[2019-11-05] MEDS: HYDROXYUREA 500 MG CAPSULE PO SCH (10:26)
[2019-11-05] MEDS: NYSTATIN 100,000 UNIT/GM TOPICAL CREAM 15 GM TUBE TP SCH ×2 (10:26→21:04)
[2019-11-05] MEDS: ZINC OXIDE/PETROLATUM,WHITE 1 APPLIC OINT...G. TP SCH ×2 (10:26→21:05)
[2019-11-05] MEDS: levETIRAcetam 500 MG TABLET (FP) PO SCH ×2 (10:26→21:03)
[2019-11-05 12:37] LABS: HEMATOCRIT 27.7 % (32.4-45.2); HEMOGLOBIN 9.1 GM/dL (10.7-15.3); MCH 35.3 pg (25.7-33.7); MCHC 32.8 g/dl (32.0-36.0); MEAN CELL VOLUME 107.7 fl (80-96); MEAN PLT VOLUME 8.7 fl (7.5-11.1); PLATELET COUNT 451 K/MM3 (134-434); RBC 2.57 M/mm3 (3.60-5.2); RDW 19.3 % (11.6-15.6); WHITE BLOOD COUNT 6.1 K/mm3 (4.0-10.0)
[2019-11-05 13:10] LABS: ALBUMIN 2.4 g/dl (3.4-5.0); ALK PHOS 117 U/L (45-117); BILIRUBIN,TOTAL 0.7 mg/dL (0.2-1); CALCIUM 9.3 mg/dL (8.5-10.1); CHLORIDE 91 mmol/L (98-107); CREATININE 1.4 mg/dL (0.55-1.3); GLUCOSE,RANDOM 111 mg/dL (74-106); POTASSIUM 4.2 mmol/L (3.5-5.1); SGOT/AST 18 U/L (15-37); SGPT/ALT 12 U/L (13-61); SODIUM 140 mmol/L (136-145); TOT PROT 6.9 g/dl (6.4-8.2)
[2019-11-05 13:33] LABS: ANION GAP 4 MMOL/L (8-16); CO2 > 45 mmol/L (21-32)
[2019-11-05] MEDS ORDERED: ACETAMINOPHEN 500 MG TABLET (FP) PO ONE (19:58)
[2019-11-05] MEDS: acetaZOLAMIDE 250 MG TABLET PO SCH (21:04)
[2019-11-06 01:33] LABS: EPI CELLS >36 /uL (0-25.1); HYALINE CASTS 0 /uL (0-3.1); PH,URINE >= 9.0 (5.0-8.0); URINE APPEARANCE CLOUDY; URINE BILIRUBIN NEGATIVE (NEGATIVE); URINE COLOR YELLOW; URINE GLUCOSE (UA) NEGATIVE (NEGATIVE); URINE KETONE NEGATIVE (NEGATIVE); URINE LEUK ESTERASE 3+ (NEGATIVE); URINE NITRITE NEGATIVE (NEGATIVE); URINE PROTEIN 2+ (NEGATIVE); URINE RBC 28 /uL (0-23.9); URINE WBC 11 /uL (0-25.8)
[2019-11-06] MEDS: INSULIN SLIDING SCALE (NOVOLOG) 1 VIAL SQ SCH ×3 (06:20→17:39)
[2019-11-06 07:59] LABS: HEMOGLOBIN 8.9 GM/dL (10.7-15.3); MCHC 34.2 g/dl (32.0-36.0); MEAN CELL VOLUME 108.3 fl (80-96); MEAN PLT VOLUME 8.9 fl (7.5-11.1); PLATELET COUNT 441 K/MM3 (134-434); RDW 18.8 % (11.6-15.6); WHITE BLOOD COUNT 7.7 K/mm3 (4.0-10.0)
[2019-11-06 08:31] LABS: ALBUMIN 2.3 g/dl (3.4-5.0); ALK PHOS 121 U/L (45-117); ANION GAP 3 MMOL/L (8-16); BILIRUBIN,TOTAL 0.8 mg/dL (0.2-1); BLOOD UREA NITROGEN 59.9 mg/dL (7-18); CALCIUM 9.2 mg/dL (8.5-10.1); CHLORIDE 93 mmol/L (98-107); CO2 > 45 mmol/L (21-32); CREATININE 1.5 mg/dL (0.55-1.3); GLUCOSE,RANDOM 97 mg/dL (74-106); SGOT/AST 20 U/L (15-37); SGPT/ALT 14 U/L (13-61); SODIUM 142 mmol/L (136-145); TOT PROT 6.8 g/dl (6.4-8.2)
[2019-11-06] MEDS ORDERED: PT OWN MED DRAWER 7, Y5N ONE ×2 (10:44→21:35)
[2019-11-06] MEDS: CARVEDILOL 25 MG TABLET (FP) PO SCH ×2 (10:49→21:32)
[2019-11-06] MEDS: SPIRONOLACTONE 25 MG TABLET PO SCH (10:49)
[2019-11-06] MEDS: LACTULOSE 20 GM/30 ML UDC (FOR ORAL USE ONLY) PO SCH ×2 (10:49→21:32)
[2019-11-06] MEDS: VALSARTAN 40 MG TABLET PO SCH (10:50)
[2019-11-06] MEDS: HYDROXYUREA 500 MG CAPSULE PO SCH (10:50)
[2019-11-06] MEDS: levETIRAcetam 500 MG TABLET (FP) PO SCH ×2 (10:50→21:32)
[2019-11-06] MEDS: NYSTATIN 100,000 UNIT/GM TOPICAL CREAM 15 GM TUBE TP SCH ×2 (10:50→21:33)
[2019-11-06] MEDS: acetaZOLAMIDE 250 MG TABLET PO SCH ×2 (10:50→21:35)
[2019-11-06] MEDS: APIXABAN 5 MG TABLET PO SCH ×2 (10:50→21:32)
[2019-11-06] MEDS: ZINC OXIDE/PETROLATUM,WHITE 1 APPLIC OINT...G. TP SCH ×2 (10:51→21:33)
[2019-11-06] MEDS ORDERED: ACETAMINOPHEN 325 MG TABLET (FP) PO ONE (20:56)
[2019-11-07 06:29] LABS: BASO % 0.8 % (0-2.0); EOS % 4.8 % (0-4.5); HEMATOCRIT 28.2 % (32.4-45.2); HEMOGLOBIN 9.6 GM/dL (10.7-15.3); LYMPH % 11.7 % (8-40); MCH 37.3 pg (25.7-33.7); MCHC 33.9 g/dl (32.0-36.0); MEAN PLT VOLUME 8.7 fl (7.5-11.1); MONO % 14.3 % (3.8-10.2); NEUT % 68.4 % (42.8-82.8); PLATELET COUNT 433 K/MM3 (134-434); RBC 2.57 M/mm3 (3.60-5.2); RDW 19.4 % (11.6-15.6); WHITE BLOOD COUNT 8.6 K/mm3 (4.0-10.0)
[2019-11-07] MEDS: INSULIN SLIDING SCALE (NOVOLOG) 1 VIAL SQ SCH ×3 (06:58→17:16)
[2019-11-07 09:06] LABS: ALBUMIN 2.4 g/dl (3.4-5.0); BILIRUBIN,TOTAL 0.8 mg/dL (0.2-1); BLOOD UREA NITROGEN 62.1 mg/dL (7-18); CALCIUM 9.3 mg/dL (8.5-10.1); CREATININE 1.5 mg/dL (0.55-1.3); MAGNESIUM 2.4 mg/dL (1.8-2.4); PHOSPHOROUS 4.4 mg/dL (2.5-4.9); POTASSIUM 4.4 mmol/L (3.5-5.1); TOT PROT 7.3 g/dl (6.4-8.2)
[2019-11-07] MEDS: LACTULOSE 20 GM/30 ML UDC (FOR ORAL USE ONLY) PO SCH ×3 (10:45→22:15)
[2019-11-07] MEDS: CARVEDILOL 25 MG TABLET (FP) PO SCH ×2 (10:46→22:16)
[2019-11-07] MEDS: VALSARTAN 40 MG TABLET PO SCH (10:46)
[2019-11-07] MEDS: APIXABAN 5 MG TABLET PO SCH ×2 (10:46→22:16)
[2019-11-07] MEDS: SPIRONOLACTONE 25 MG TABLET PO SCH (10:46)
[2019-11-07] MEDS ORDERED: PT OWN MED DRAWER 7, Y5N ONE ×3 (10:48→21:53)
[2019-11-07] MEDS: levETIRAcetam 500 MG TABLET (FP) PO SCH ×2 (10:48→22:16)
[2019-11-07] MEDS: acetaZOLAMIDE 250 MG TABLET PO SCH ×2 (10:48→22:17)
[2019-11-07] MEDS: HYDROXYUREA 500 MG CAPSULE PO SCH (10:48)
[2019-11-07] MEDS: NYSTATIN 100,000 UNIT/GM TOPICAL CREAM 15 GM TUBE TP SCH ×2 (10:50→22:17)
[2019-11-07] MEDS: ZINC OXIDE/PETROLATUM,WHITE 1 APPLIC OINT...G. TP SCH ×2 (10:50→22:17)
[2019-11-07] MEDS ORDERED: FUROSEMIDE 40 MG/4 ML INJECTABLE VIAL IVPB ONE (14:10)
[2019-11-07 15:22] LABS: ANISOCYTOSIS 1+; MACROCYTOSIS 0; PLATELET ESTIMATE NORMAL
[2019-11-07] MEDS ORDERED: TIGECYCLINE 100 MG in DEXTROSE 5%-WATER - 100 ML IVPB ONE (15:49)
[2019-11-08] MEDS: INSULIN SLIDING SCALE (NOVOLOG) 1 VIAL SQ SCH ×3 (06:07→16:45)
[2019-11-08] MEDS: LACTULOSE 20 GM/30 ML UDC (FOR ORAL USE ONLY) PO SCH (06:24)
[2019-11-08 06:43] LABS: HEMATOCRIT 25.5 % (32.4-45.2); HEMOGLOBIN 8.6 GM/dL (10.7-15.3); MCHC 33.7 g/dl (32.0-36.0); MEAN CELL VOLUME 109.7 fl (80-96); MEAN PLT VOLUME 8.8 fl (7.5-11.1); PLATELET COUNT 397 K/MM3 (134-434); RBC 2.32 M/mm3 (3.60-5.2); RDW 18.9 % (11.6-15.6); WHITE BLOOD COUNT 8.3 K/mm3 (4.0-10.0)
[2019-11-08 07:20] LABS: BILIRUBIN,TOTAL 0.8 mg/dL (0.2-1); BLOOD UREA NITROGEN 67.8 mg/dL (7-18); CALCIUM 8.8 mg/dL (8.5-10.1); CREATININE 1.6 mg/dL (0.55-1.3); POTASSIUM 3.6 mmol/L (3.5-5.1); TOT PROT 6.4 g/dl (6.4-8.2)
[2019-11-08] MEDS ORDERED: PT OWN MED DRAWER 7, Y5N ONE ×3 (09:19→21:02)
[2019-11-08] MEDS: NYSTATIN 100,000 UNIT/GM TOPICAL CREAM 15 GM TUBE TP SCH ×2 (09:27→22:58)
[2019-11-08] MEDS: acetaZOLAMIDE 250 MG TABLET PO SCH ×2 (09:27→22:24)
[2019-11-08] MEDS: SPIRONOLACTONE 25 MG TABLET PO SCH (09:27)
[2019-11-08] MEDS: HYDROXYUREA 500 MG CAPSULE PO SCH (09:27)
[2019-11-08] MEDS: CARVEDILOL 25 MG TABLET (FP) PO SCH ×2 (09:27→22:58)
[2019-11-08] MEDS: levETIRAcetam 500 MG TABLET (FP) PO SCH ×2 (09:27→22:24)
[2019-11-08] MEDS: ZINC OXIDE/PETROLATUM,WHITE 1 APPLIC OINT...G. TP SCH ×2 (09:27→22:59)
[2019-11-08] MEDS: VALSARTAN 40 MG TABLET PO SCH (09:27)
[2019-11-08] MEDS: APIXABAN 5 MG TABLET PO SCH ×2 (09:27→22:24)
[2019-11-08] MEDS: TIGECYCLINE 50 MG in DEXTROSE 5%-WATER 100 ML IVPB SCH ×2 (11:05→22:59)
[2019-11-08 14:23] LABS: EPI CELLS >36 /uL (0-25.1); HYALINE CASTS 2 /uL (0-3.1); URINE APPEARANCE CLEAR; URINE BACTERIA 76 /uL (0-1359); URINE BILIRUBIN NEGATIVE (NEGATIVE); URINE COLOR YELLOW; URINE GLUCOSE (UA) NEGATIVE (NEGATIVE); URINE KETONE NEGATIVE (NEGATIVE); URINE LEUK ESTERASE 3+ (NEGATIVE); URINE NITRITE NEGATIVE (NEGATIVE); URINE PROTEIN TRACE (NEGATIVE); URINE RBC 9 /uL (0-23.9); URINE WBC 313 /uL (0-25.8)
[2019-11-08] MEDS: COLLAGENASE CLOSTRIDIUM HIST. 30 GRAMS TUBE TP SCH (16:00)
[2019-11-08] MEDS: ACETAMINOPHEN 1000 MG/100 ML VIAL (NON FORMULARY) IVPB PRN (18:26)
[2019-11-09] MEDS: INSULIN SLIDING SCALE (NOVOLOG) 1 VIAL SQ SCH ×3 (06:36→16:23)
[2019-11-09 07:20] LABS: CALCIUM 8.9 mg/dL (8.5-10.1); POTASSIUM 3.8 mmol/L (3.5-5.1)
[2019-11-09 07:23] LABS: BILIRUBIN,TOTAL 0.7 mg/dL (0.2-1); CREATININE 1.6 mg/dL (0.55-1.3); TOT PROT 6.4 g/dl (6.4-8.2)
[2019-11-09] MEDS ORDERED: PT OWN MED DRAWER 7, Y5N ONE ×2 (08:51→21:50)
[2019-11-09] MEDS: SPIRONOLACTONE 25 MG TABLET PO SCH (09:10)
[2019-11-09] MEDS: NYSTATIN 100,000 UNIT/GM TOPICAL CREAM 15 GM TUBE TP SCH ×2 (09:10→22:25)
[2019-11-09] MEDS: HYDROXYUREA 500 MG CAPSULE PO SCH (09:10)
[2019-11-09] MEDS: ZINC OXIDE/PETROLATUM,WHITE 1 APPLIC OINT...G. TP SCH ×2 (09:10→22:07)
[2019-11-09] MEDS: CARVEDILOL 25 MG TABLET (FP) PO SCH ×2 (09:10→22:07)
[2019-11-09] MEDS: acetaZOLAMIDE 250 MG TABLET PO SCH ×2 (09:10→22:07)
[2019-11-09] MEDS: APIXABAN 5 MG TABLET PO SCH ×2 (09:10→22:07)
[2019-11-09] MEDS: LACTULOSE 20 GM/30 ML UDC (FOR ORAL USE ONLY) PO SCH (09:10)
[2019-11-09] MEDS: COLLAGENASE CLOSTRIDIUM HIST. 30 GRAMS TUBE TP SCH (09:10)
[2019-11-09] MEDS: levETIRAcetam 500 MG TABLET (FP) PO SCH ×2 (09:10→22:07)
[2019-11-09] MEDS: TIGECYCLINE 50 MG in DEXTROSE 5%-WATER 100 ML IVPB SCH (09:58)
[2019-11-09 11:02] LABS: ANISOCYTOSIS 1+; MACROCYTOSIS 1+; PLATELET ESTIMATE NORMAL
[2019-11-09] MEDS: ACETAMINOPHEN 1000 MG/100 ML VIAL (NON FORMULARY) IVPB PRN (11:03)
[2019-11-09 11:19] LABS: BASO % 0.6 % (0-2.0); EOS % 2.4 % (0-4.5); HEMATOCRIT 30.5 % (32.4-45.2); HEMOGLOBIN 9.2 GM/dL (10.7-15.3); LYMPH % 9.2 % (8-40); MCH 31.1 pg (25.7-33.7); MCHC 30.1 g/dl (32.0-36.0); MEAN CELL VOLUME 103.2 fl (80-96); MEAN PLT VOLUME 9.6 fl (7.5-11.1); NEUT % 74.8 % (42.8-82.8); PLATELET COUNT 384 K/MM3 (134-434); RBC 2.95 M/mm3 (3.60-5.2); RDW 19.1 % (11.6-15.6); WHITE BLOOD COUNT 13.5 K/mm3 (4.0-10.0)
[2019-11-09] MEDS ORDERED: cefTRIAXone SODIUM 1 GM VIAL ONE (13:14)
[2019-11-09] MEDS ORDERED: DEXTROSE 5%-WATER - 50 ML IVPB ONE (13:15)
[2019-11-09] MEDS: FLUCONAZOLE 100 MG TABLET (UD) PO SCH (13:25)
[2019-11-09] MEDS: CEFTRIAXONE 1 GM in DEXTROSE 5%-WATER - 50 ML IVPB SCH (14:13)
[2019-11-09] MEDS: LINEZOLID 600 MG PREMIX BAG 600 MG/300 ML BAG IVPB SCH (14:44)
[2019-11-10] MEDS: LINEZOLID 600 MG PREMIX BAG 600 MG/300 ML BAG IVPB SCH ×2 (00:59→13:48)
[2019-11-10] MEDS ORDERED: ACETAMINOPHEN 325 MG TABLET (FP) PO PRN (01:46)
[2019-11-10 05:57] LABS: ARTERIAL BLD GAS O2 SATURATION 90.5 % (95-98); ARTERIAL BLOOD GAS BASE EXCESS 10.4 mmol/L (-2-2); ARTERIAL BLOOD GAS PCO2 63.2 mmHg (35-45); ARTERIAL BLOOD GAS PO2 61.3 mmHg (80-100); ARTERIAL BLOOD GAS pH 7.39 (7.35-7.45)
[2019-11-10 05:58] LABS: ALLENS TEST POSITIVE
[2019-11-10 06:34] LABS: HEMATOCRIT 24.9 % (32.4-45.2); HEMOGLOBIN 8.2 GM/dL (10.7-15.3); MCH 36.3 pg (25.7-33.7); MCHC 32.8 g/dl (32.0-36.0); MEAN CELL VOLUME 110.6 fl (80-96); MEAN PLT VOLUME 9.1 fl (7.5-11.1); PLATELET COUNT 382 K/MM3 (134-434); RBC 2.25 M/mm3 (3.60-5.2); RDW 18.7 % (11.6-15.6); WHITE BLOOD COUNT 14.8 K/mm3 (4.0-10.0)
[2019-11-10] MEDS: INSULIN SLIDING SCALE (NOVOLOG) 1 VIAL SQ SCH ×3 (06:34→16:32)
[2019-11-10 07:03] LABS: ALBUMIN 1.9 g/dl (3.4-5.0); BILIRUBIN,TOTAL 0.5 mg/dL (0.2-1); BLOOD UREA NITROGEN 91.1 mg/dL (7-18); CALCIUM 8.6 mg/dL (8.5-10.1); CREATININE 1.9 mg/dL (0.55-1.3); POTASSIUM 3.5 mmol/L (3.5-5.1); TOT PROT 6.1 g/dl (6.4-8.2)
[2019-11-10] MEDS ORDERED: cefTRIAXone SODIUM 1 GM VIAL ONE (09:27)
[2019-11-10] MEDS ORDERED: DEXTROSE 5%-WATER - 50 ML IVPB ONE (09:27)
[2019-11-10] MEDS: SPIRONOLACTONE 25 MG TABLET PO SCH (09:42)
[2019-11-10] MEDS: CARVEDILOL 25 MG TABLET (FP) PO SCH ×3 (09:43→22:29)
[2019-11-10] MEDS: LACTULOSE 20 GM/30 ML UDC (FOR ORAL USE ONLY) PO SCH (09:43)
[2019-11-10] MEDS: HYDROXYUREA 500 MG CAPSULE PO SCH (09:46)
[2019-11-10] MEDS: FLUCONAZOLE 100 MG TABLET (UD) PO SCH (09:46)
[2019-11-10] MEDS: APIXABAN 5 MG TABLET PO SCH ×2 (09:46→22:29)
[2019-11-10] MEDS: acetaZOLAMIDE 250 MG TABLET PO SCH (09:46)
[2019-11-10] MEDS: NYSTATIN 100,000 UNIT/GM TOPICAL CREAM 15 GM TUBE TP SCH ×2 (09:48→22:29)
[2019-11-10] MEDS: CEFTRIAXONE 1 GM in DEXTROSE 5%-WATER - 50 ML IVPB SCH (09:48)
[2019-11-10] MEDS: levETIRAcetam 500 MG TABLET (FP) PO SCH ×2 (09:48→22:29)
[2019-11-10] MEDS: ZINC OXIDE/PETROLATUM,WHITE 1 APPLIC OINT...G. TP SCH ×2 (09:48→22:29)
[2019-11-10] MEDS: COLLAGENASE CLOSTRIDIUM HIST. 30 GRAMS TUBE TP SCH (09:48)
[2019-11-10] MEDS ORDERED: PT OWN MED DRAWER 7, Y5N ONE (10:18)
[2019-11-10 20:11] LABS: HEP B CORE AB, TOT Negative (Negative)
[2019-11-11] MEDS: LINEZOLID 600 MG PREMIX BAG 600 MG/300 ML BAG IVPB SCH ×2 (01:04→12:53)
[2019-11-11 06:25] LABS: BASO % 0.4 % (0-2.0); EOS % 3.7 % (0-4.5); HEMATOCRIT 23.9 % (32.4-45.2); HEMOGLOBIN 8.3 GM/dL (10.7-15.3); LYMPH % 5.1 % (8-40); MCH 39.2 pg (25.7-33.7); MCHC 34.6 g/dl (32.0-36.0); MEAN CELL VOLUME 113.4 fl (80-96); MEAN PLT VOLUME 9.1 fl (7.5-11.1); MONO % 8.9 % (3.8-10.2); NEUT % 81.9 % (42.8-82.8); PLATELET COUNT 373 K/MM3 (134-434); RBC 2.11 M/mm3 (3.60-5.2); RDW 18.6 % (11.6-15.6); WHITE BLOOD COUNT 12.2 K/mm3 (4.0-10.0)
[2019-11-11 06:56] LABS: ALBUMIN 1.8 g/dl (3.4-5.0); BILIRUBIN,TOTAL 0.4 mg/dL (0.2-1); CALCIUM 8.3 mg/dL (8.5-10.1); CREATININE 2.1 mg/dL (0.55-1.3); POTASSIUM 3.6 mmol/L (3.5-5.1)
[2019-11-11] MEDS: INSULIN SLIDING SCALE (NOVOLOG) 1 VIAL SQ SCH ×3 (07:23→17:27)
[2019-11-11] MEDS ORDERED: cefTRIAXone SODIUM 1 GM VIAL ONE (09:38)
[2019-11-11] MEDS ORDERED: DEXTROSE 5%-WATER - 50 ML IVPB ONE (09:39)
[2019-11-11] MEDS ORDERED: PT OWN MED DRAWER 7, Y5N ONE ×2 (09:40→10:12)
[2019-11-11] MEDS: APIXABAN 5 MG TABLET PO SCH ×2 (10:09→22:43)
[2019-11-11] MEDS: FLUCONAZOLE 100 MG TABLET (UD) PO SCH (10:09)
[2019-11-11] MEDS: CEFTRIAXONE 1 GM in DEXTROSE 5%-WATER - 50 ML IVPB SCH (10:09)
[2019-11-11] MEDS: levETIRAcetam 500 MG TABLET (FP) PO SCH ×2 (10:09→22:45)
[2019-11-11] MEDS: ZINC OXIDE/PETROLATUM,WHITE 1 APPLIC OINT...G. TP SCH ×2 (10:10→22:45)
[2019-11-11] MEDS: NYSTATIN 100,000 UNIT/GM TOPICAL CREAM 15 GM TUBE TP SCH ×2 (10:10→22:46)
[2019-11-11] MEDS: COLLAGENASE CLOSTRIDIUM HIST. 30 GRAMS TUBE TP SCH (10:10)
[2019-11-11 10:17] LABS: ANISOCYTOSIS 1+; MACROCYTOSIS 1+; PLATELET ESTIMATE NORMAL
[2019-11-11 10:55] LABS: ARTERIAL BLOOD GAS pH 7.39 (7.35-7.45)
[2019-11-11 10:56] LABS: ARTERIAL BLD GAS O2 SATURATION 97.1 % (95-98); ARTERIAL BLOOD GAS BASE EXCESS 14.4 mmol/L (-2-2); ARTERIAL BLOOD GAS PO2 97.7 mmHg (80-100)
[2019-11-11 11:07] LABS: ANTIGLOMERULAR BASEMENT MEN.AB 3 units (0-20)
[2019-11-11] MEDS: LACTULOSE 20 GM/30 ML UDC (FOR ORAL USE ONLY) PO SCH (11:45)
[2019-11-11] MEDS: HYDROXYUREA 500 MG CAPSULE PO SCH (11:53)
[2019-11-11 16:49] LABS: ARTERIAL BLD GAS O2 SATURATION 99.1 % (95-98); ARTERIAL BLOOD GAS PCO2 56.6 mmHg (35-45)
[2019-11-11 16:50] LABS: ALLENS TEST POSITIVE; ARTERIAL BLOOD GAS BASE EXCESS 8.4 mmol/L (-2-2)
[2019-11-11] MEDS: CARVEDILOL 25 MG TABLET (FP) PO SCH ×2 (17:21→22:44)
[2019-11-12] MEDS: LINEZOLID 600 MG PREMIX BAG 600 MG/300 ML BAG IVPB SCH ×2 (00:47→12:57)
[2019-11-12] MEDS: INSULIN SLIDING SCALE (NOVOLOG) 1 VIAL SQ SCH ×3 (06:07→16:47)
[2019-11-12 06:36] LABS: HEMATOCRIT 23.5 % (32.4-45.2); HEMOGLOBIN 7.9 GM/dL (10.7-15.3); MCHC 33.7 g/dl (32.0-36.0); MEAN CELL VOLUME 112.6 fl (80-96); MEAN PLT VOLUME 9.2 fl (7.5-11.1); PLATELET COUNT 345 K/MM3 (134-434); RBC 2.09 M/mm3 (3.60-5.2); RDW 18.2 % (11.6-15.6)
[2019-11-12 07:13] LABS: ALBUMIN 1.6 g/dl (3.4-5.0); BILIRUBIN,TOTAL 0.5 mg/dL (0.2-1); CALCIUM 8.4 mg/dL (8.5-10.1); CREATININE 2.3 mg/dL (0.55-1.3); POTASSIUM 3.7 mmol/L (3.5-5.1); TOT PROT 5.7 g/dl (6.4-8.2)
[2019-11-12 07:48] LABS: BLOOD UREA NITROGEN 110.2 mg/dL (7-18)
[2019-11-12] MEDS ORDERED: PT OWN MED DRAWER 7, Y5N ONE ×2 (08:25→09:32)
[2019-11-12] MEDS ORDERED: DEXTROSE 5%-WATER - 50 ML IVPB ONE (08:25)
[2019-11-12] MEDS ORDERED: cefTRIAXone SODIUM 1 GM VIAL ONE (08:25)
[2019-11-12] MEDS: CARVEDILOL 25 MG TABLET (FP) PO SCH ×2 (09:30→21:34)
[2019-11-12] MEDS: FLUCONAZOLE 100 MG TABLET (UD) PO SCH (09:30)
[2019-11-12] MEDS: LACTULOSE 20 GM/30 ML UDC (FOR ORAL USE ONLY) PO SCH (09:30)
[2019-11-12] MEDS: CEFTRIAXONE 1 GM in DEXTROSE 5%-WATER - 50 ML IVPB SCH (09:30)
[2019-11-12] MEDS: levETIRAcetam 500 MG TABLET (FP) PO SCH ×2 (09:30→21:34)
[2019-11-12] MEDS: APIXABAN 5 MG TABLET PO SCH ×2 (09:30→21:34)
[2019-11-12] MEDS: HYDROXYUREA 500 MG CAPSULE PO SCH (09:32)
[2019-11-12] MEDS: COLLAGENASE CLOSTRIDIUM HIST. 30 GRAMS TUBE TP SCH (11:40)
[2019-11-12] MEDS: ZINC OXIDE/PETROLATUM,WHITE 1 APPLIC OINT...G. TP SCH ×2 (11:40→21:35)
[2019-11-12] MEDS: NYSTATIN 100,000 UNIT/GM TOPICAL CREAM 15 GM TUBE TP SCH ×2 (11:40→21:34)
[2019-11-12] MEDS: MINERAL OIL/PETROLAT/WATER TOPICAL CREAM 113 GM JAR TP SCH (19:46)
[2019-11-13] MEDS: LINEZOLID 600 MG PREMIX BAG 600 MG/300 ML BAG IVPB SCH ×2 (00:28→12:11)
[2019-11-13 05:29] LABS: ALLENS TEST POSITIVE; ARTERIAL BLD GAS O2 SATURATION 98.8 % (95-98); ARTERIAL BLOOD GAS PO2 152.2 mmHg (80-100); ARTERIAL BLOOD GAS pH 7.37 (7.35-7.45)
[2019-11-13] MEDS: INSULIN SLIDING SCALE (NOVOLOG) 1 VIAL SQ SCH ×3 (06:30→16:43)
[2019-11-13 07:06] LABS: BASO % 0.5 % (0-2.0); HEMATOCRIT 23.4 % (32.4-45.2); HEMOGLOBIN 8.4 GM/dL (10.7-15.3); LYMPH % 6.6 % (8-40); MCH 39.7 pg (25.7-33.7); MCHC 35.9 g/dl (32.0-36.0); MEAN CELL VOLUME 110.8 fl (80-96); MEAN PLT VOLUME 9.1 fl (7.5-11.1); MONO % 8.9 % (3.8-10.2); PLATELET COUNT 341 K/MM3 (134-434); RBC 2.11 M/mm3 (3.60-5.2); RDW 17.8 % (11.6-15.6); WHITE BLOOD COUNT 11.7 K/mm3 (4.0-10.0)
[2019-11-13 07:27] LABS: CALCIUM 8.1 mg/dL (8.5-10.1); CREATININE 2.3 mg/dL (0.55-1.3); MAGNESIUM 2.7 mg/dL (1.8-2.4); PHOSPHOROUS 5.1 mg/dL (2.5-4.9); POTASSIUM 3.7 mmol/L (3.5-5.1)
[2019-11-13] MEDS ORDERED: DEXTROSE 5%-WATER - 50 ML IVPB ONE (09:53)
[2019-11-13] MEDS ORDERED: cefTRIAXone SODIUM 1 GM VIAL ONE (09:53)
[2019-11-13] MEDS: FLUCONAZOLE 100 MG TABLET (UD) PO SCH (10:18)
[2019-11-13] MEDS: LACTULOSE 20 GM/30 ML UDC (FOR ORAL USE ONLY) PO SCH (10:18)
[2019-11-13] MEDS: levETIRAcetam 500 MG TABLET (FP) PO SCH ×2 (10:18→22:53)
[2019-11-13] MEDS: APIXABAN 5 MG TABLET PO SCH ×2 (10:18→22:53)
[2019-11-13] MEDS: CEFTRIAXONE 1 GM in DEXTROSE 5%-WATER - 50 ML IVPB SCH (10:18)
[2019-11-13] MEDS: MINERAL OIL/PETROLAT/WATER TOPICAL CREAM 113 GM JAR TP SCH (10:19)
[2019-11-13] MEDS: CARVEDILOL 25 MG TABLET (FP) PO SCH (10:19)
[2019-11-13] MEDS: ZINC OXIDE/PETROLATUM,WHITE 1 APPLIC OINT...G. TP SCH ×2 (10:20→22:53)
[2019-11-13] MEDS: NYSTATIN 100,000 UNIT/GM TOPICAL CREAM 15 GM TUBE TP SCH ×2 (10:20→22:54)
[2019-11-13] MEDS: HYDROXYUREA 500 MG CAPSULE PO SCH (10:20)
[2019-11-13] MEDS: COLLAGENASE CLOSTRIDIUM HIST. 30 GRAMS TUBE TP SCH (10:20)
[2019-11-13] MEDS ORDERED: FUROSEMIDE 40 MG/4 ML INJECTABLE VIAL IVPUSH ONE (12:36)
[2019-11-13] MEDS: CARVEDILOL 12.5 MG TABLET (FP) PO SCH (22:44)
[2019-11-14] MEDS: LINEZOLID 600 MG PREMIX BAG 600 MG/300 ML BAG IVPB SCH ×2 (01:51→12:04)
[2019-11-14] MEDS: INSULIN SLIDING SCALE (NOVOLOG) 1 VIAL SQ SCH ×3 (06:30→16:49)
[2019-11-14 07:08] LABS: BASO % 0.7 % (0-2.0); EOS % 7.2 % (0-4.5); HEMATOCRIT 23.9 % (32.4-45.2); HEMOGLOBIN 8.2 GM/dL (10.7-15.3); LYMPH % 6.1 % (8-40); MCH 37.4 pg (25.7-33.7); MCHC 34.4 g/dl (32.0-36.0); MEAN CELL VOLUME 108.6 fl (80-96); MEAN PLT VOLUME 8.6 fl (7.5-11.1); MONO % 7.1 % (3.8-10.2); NEUT % 78.9 % (42.8-82.8); PLATELET COUNT 353 K/MM3 (134-434); RDW 17.6 % (11.6-15.6); WHITE BLOOD COUNT 11.7 K/mm3 (4.0-10.0)
[2019-11-14 07:24] LABS: CALCIUM 7.8 mg/dL (8.5-10.1); CREATININE 2.2 mg/dL (0.55-1.3); MAGNESIUM 2.5 mg/dL (1.8-2.4); PHOSPHOROUS 4.4 mg/dL (2.5-4.9); POTASSIUM 3.9 mmol/L (3.5-5.1)
[2019-11-14 07:59] LABS: BLOOD UREA NITROGEN 110.3 mg/dL (7-18)
[2019-11-14] MEDS ORDERED: cefTRIAXone SODIUM 1 GM VIAL ONE (08:33)
[2019-11-14] MEDS ORDERED: PT OWN MED DRAWER 7, Y5N ONE (08:33)
[2019-11-14] MEDS ORDERED: DEXTROSE 5%-WATER - 50 ML IVPB ONE (08:34)
[2019-11-14] MEDS: LACTULOSE 20 GM/30 ML UDC (FOR ORAL USE ONLY) PO SCH (09:06)
[2019-11-14] MEDS: CEFTRIAXONE 1 GM in DEXTROSE 5%-WATER - 50 ML IVPB SCH (09:07)
[2019-11-14] MEDS: FLUCONAZOLE 100 MG TABLET (UD) PO SCH (09:07)
[2019-11-14] MEDS: COLLAGENASE CLOSTRIDIUM HIST. 30 GRAMS TUBE TP SCH (09:07)
[2019-11-14] MEDS: ZINC OXIDE/PETROLATUM,WHITE 1 APPLIC OINT...G. TP SCH ×2 (09:07→21:38)
[2019-11-14] MEDS: MINERAL OIL/PETROLAT/WATER TOPICAL CREAM 113 GM JAR TP SCH (09:07)
[2019-11-14] MEDS: NYSTATIN 100,000 UNIT/GM TOPICAL CREAM 15 GM TUBE TP SCH ×2 (09:07→21:38)
[2019-11-14] MEDS: levETIRAcetam 500 MG TABLET (FP) PO SCH ×2 (09:07→21:36)
[2019-11-14] MEDS: HYDROXYUREA 500 MG CAPSULE PO SCH (09:07)
[2019-11-14] MEDS: APIXABAN 5 MG TABLET PO SCH ×2 (09:07→21:36)
[2019-11-14] MEDS: CARVEDILOL 12.5 MG TABLET (FP) PO SCH ×2 (09:07→21:46)
[2019-11-14] MEDS ORDERED: FUROSEMIDE 40 MG/4 ML INJECTABLE VIAL IVPUSH ONE (11:15)
[2019-11-14 16:29] VITALS: BMI 20.7
[2019-11-14 18:08] LABS: ATYPICAL pANCA <1:20 titer (Neg:<1:20); C-ANCA <1:20 titer (Neg:<1:20)
[2019-11-15] MEDS: INSULIN SLIDING SCALE (NOVOLOG) 1 VIAL SQ SCH ×3 (06:12→16:15)
[2019-11-15 08:00] LABS: HEMATOCRIT 24.5 % (32.4-45.2); HEMOGLOBIN 8.4 GM/dL (10.7-15.3); MCH 36.2 pg (25.7-33.7); MCHC 34.1 g/dl (32.0-36.0); MEAN CELL VOLUME 106.1 fl (80-96); MEAN PLT VOLUME 8.7 fl (7.5-11.1); PLATELET COUNT 366 K/MM3 (134-434); RBC 2.31 M/mm3 (3.60-5.2); RDW 17.6 % (11.6-15.6); WHITE BLOOD COUNT 11.5 K/mm3 (4.0-10.0)
[2019-11-15 08:05] LABS: ALBUMIN 1.6 g/dl (3.4-5.0); CALCIUM 8.3 mg/dL (8.5-10.1)
[2019-11-15 08:08] LABS: BILIRUBIN,TOTAL 0.4 mg/dL (0.2-1); CREATININE 1.8 mg/dL (0.55-1.3)
[2019-11-15 08:15] LABS: BLOOD UREA NITROGEN 105.6 mg/dL (7-18)
[2019-11-15] MEDS ORDERED: PT OWN MED DRAWER 7, Y5N ONE (09:52)
[2019-11-15] MEDS: APIXABAN 5 MG TABLET PO SCH ×2 (09:59→21:25)
[2019-11-15] MEDS: levETIRAcetam 500 MG TABLET (FP) PO SCH ×2 (09:59→21:26)
[2019-11-15] MEDS: FLUCONAZOLE 100 MG TABLET (UD) PO SCH (09:59)
[2019-11-15] MEDS: HYDROXYUREA 500 MG CAPSULE PO SCH (09:59)
[2019-11-15] MEDS: CARVEDILOL 12.5 MG TABLET (FP) PO SCH ×2 (09:59→21:25)
[2019-11-15] MEDS: COLLAGENASE CLOSTRIDIUM HIST. 30 GRAMS TUBE TP SCH (10:00)
[2019-11-15] MEDS: ZINC OXIDE/PETROLATUM,WHITE 1 APPLIC OINT...G. TP SCH ×2 (10:00→21:26)
[2019-11-15] MEDS: MINERAL OIL/PETROLAT/WATER TOPICAL CREAM 113 GM JAR TP SCH (10:00)
[2019-11-15] MEDS: NYSTATIN 100,000 UNIT/GM TOPICAL CREAM 15 GM TUBE TP SCH ×2 (10:00→21:26)
[2019-11-15] MEDS ORDERED: FUROSEMIDE 40 MG TABLET (FP) PO SCH (10:00)
[2019-11-15] MEDS: FUROSEMIDE 40 MG TABLET (FP) PO SCH (16:08)
[2019-11-16] MEDS: FUROSEMIDE 40 MG TABLET (FP) PO SCH ×2 (05:40→13:19)
[2019-11-16] MEDS: INSULIN SLIDING SCALE (NOVOLOG) 1 VIAL SQ SCH ×3 (06:09→21:55)
[2019-11-16 07:36] LABS: HEMATOCRIT 25.8 % (32.4-45.2); HEMOGLOBIN 8.6 GM/dL (10.7-15.3); MCHC 33.3 g/dl (32.0-36.0); MEAN CELL VOLUME 108.1 fl (80-96); PLATELET COUNT 357 K/MM3 (134-434); RBC 2.39 M/mm3 (3.60-5.2); WHITE BLOOD COUNT 11.9 K/mm3 (4.0-10.0)
[2019-11-16 08:11] LABS: ALBUMIN 1.7 g/dl (3.4-5.0); BILIRUBIN,TOTAL 0.4 mg/dL (0.2-1); BLOOD UREA NITROGEN 101.8 mg/dL (7-18); CALCIUM 8.7 mg/dL (8.5-10.1); CREATININE 1.7 mg/dL (0.55-1.3); POTASSIUM 3.9 mmol/L (3.5-5.1); TOT PROT 6.1 g/dl (6.4-8.2)
[2019-11-16] MEDS: SILVER SULFADIAZINE 1% TOP CREAM 50 GM JAR TP SCH ×2 (10:53→21:55)
[2019-11-16] MEDS: APIXABAN 5 MG TABLET PO SCH ×2 (10:53→22:19)
[2019-11-16] MEDS: levETIRAcetam 500 MG TABLET (FP) PO SCH ×2 (10:53→22:19)
[2019-11-16] MEDS: CARVEDILOL 12.5 MG TABLET (FP) PO SCH ×2 (10:53→22:19)
[2019-11-16] MEDS: FLUCONAZOLE 100 MG TABLET (UD) PO SCH (10:53)
[2019-11-16] MEDS: ZINC OXIDE/PETROLATUM,WHITE 1 APPLIC OINT...G. TP SCH ×2 (10:54→22:19)
[2019-11-16] MEDS: MINERAL OIL/PETROLAT/WATER TOPICAL CREAM 113 GM JAR TP SCH (10:54)
[2019-11-16] MEDS: COLLAGENASE CLOSTRIDIUM HIST. 30 GRAMS TUBE TP SCH (10:54)
[2019-11-16] MEDS: NYSTATIN 100,000 UNIT/GM TOPICAL CREAM 15 GM TUBE TP SCH ×2 (10:54→22:19)
[2019-11-16] MEDS: HYDROXYUREA 500 MG CAPSULE PO SCH (10:54)
[2019-11-16] MEDS ORDERED: PT OWN MED DRAWER 7, Y5N ONE (10:56)
[2019-11-17] MEDS: FUROSEMIDE 40 MG TABLET (FP) PO SCH ×2 (06:35→14:26)
[2019-11-17] MEDS: INSULIN SLIDING SCALE (NOVOLOG) 1 VIAL SQ SCH ×3 (06:36→17:10)
[2019-11-17 06:53] LABS: HEMATOCRIT 26.9 % (32.4-45.2); HEMOGLOBIN 8.7 GM/dL (10.7-15.3); MCH 34.7 pg (25.7-33.7); MCHC 32.4 g/dl (32.0-36.0); MEAN CELL VOLUME 106.8 fl (80-96); PLATELET COUNT 377 K/MM3 (134-434); RBC 2.52 M/mm3 (3.60-5.2); RDW 18.1 % (11.6-15.6); WHITE BLOOD COUNT 13.7 K/mm3 (4.0-10.0)
[2019-11-17 07:19] LABS: BLOOD UREA NITROGEN 95.9 mg/dL (7-18); CALCIUM 8.9 mg/dL (8.5-10.1); CREATININE 1.5 mg/dL (0.55-1.3); POTASSIUM 3.9 mmol/L (3.5-5.1)
[2019-11-17] MEDS ORDERED: PT OWN MED DRAWER 7, Y5N ONE ×2 (09:29→11:57)
[2019-11-17] MEDS: HYDROXYUREA 500 MG CAPSULE PO SCH (10:11)
[2019-11-17] MEDS: levETIRAcetam 500 MG TABLET (FP) PO SCH ×2 (10:11→22:42)
[2019-11-17] MEDS: COLLAGENASE CLOSTRIDIUM HIST. 30 GRAMS TUBE TP SCH (10:12)
[2019-11-17] MEDS: APIXABAN 5 MG TABLET PO SCH ×2 (10:12→22:43)
[2019-11-17] MEDS: MINERAL OIL/PETROLAT/WATER TOPICAL CREAM 113 GM JAR TP SCH (10:12)
[2019-11-17] MEDS: FLUCONAZOLE 100 MG TABLET (UD) PO SCH (10:12)
[2019-11-17] MEDS: NYSTATIN 100,000 UNIT/GM TOPICAL CREAM 15 GM TUBE TP SCH ×2 (10:12→22:45)
[2019-11-17] MEDS: CARVEDILOL 12.5 MG TABLET (FP) PO SCH ×2 (10:12→22:43)
[2019-11-17] MEDS: SILVER SULFADIAZINE 1% TOP CREAM 50 GM JAR TP SCH (10:13)
[2019-11-17] MEDS: ZINC OXIDE/PETROLATUM,WHITE 1 APPLIC OINT...G. TP SCH ×2 (10:13→22:45)
[2019-11-17] MEDS: ARTIFICIAL TEARS (POLYVINYL ALCOHOL) OPTH DROPS OU PRN (17:21)
[2019-11-17] MEDS: MINERAL OIL/PETROLATUM,WHITE 3.5 GM TUBE OS SCH (22:41)
[2019-11-18] MEDS: FUROSEMIDE 40 MG TABLET (FP) PO SCH ×2 (05:36→14:57)
[2019-11-18] MEDS: INSULIN SLIDING SCALE (NOVOLOG) 1 VIAL SQ SCH ×3 (06:11→17:02)
[2019-11-18 08:00] LABS: HEMATOCRIT 26.8 % (32.4-45.2); HEMOGLOBIN 8.6 GM/dL (10.7-15.3); MCH 33.6 pg (25.7-33.7); MCHC 32.3 g/dl (32.0-36.0); MEAN CELL VOLUME 104.1 fl (80-96); MEAN PLT VOLUME 8.1 fl (7.5-11.1); PLATELET COUNT 378 K/MM3 (134-434); RBC 2.57 M/mm3 (3.60-5.2)
[2019-11-18 08:04] LABS: ALBUMIN 1.7 g/dl (3.4-5.0); CALCIUM 8.3 mg/dL (8.5-10.1); CREATININE 1.4 mg/dL (0.55-1.3); MAGNESIUM 2.2 mg/dL (1.8-2.4); POTASSIUM 4.3 mmol/L (3.5-5.1)
[2019-11-18 08:09] LABS: BILIRUBIN,TOTAL 0.5 mg/dL (0.2-1); PHOSPHOROUS 2.6 mg/dL (2.5-4.9); TOT PROT 6.3 g/dl (6.4-8.2)
[2019-11-18] MEDS ORDERED: PT OWN MED DRAWER 7, Y5N ONE (10:36)
[2019-11-18] MEDS: ZINC OXIDE/PETROLATUM,WHITE 1 APPLIC OINT...G. TP SCH ×2 (10:39→21:20)
[2019-11-18] MEDS: HYDROXYUREA 500 MG CAPSULE PO SCH (10:40)
[2019-11-18] MEDS: CARVEDILOL 12.5 MG TABLET (FP) PO SCH ×2 (10:40→21:19)
[2019-11-18] MEDS: FLUCONAZOLE 100 MG TABLET (UD) PO SCH (10:40)
[2019-11-18] MEDS: levETIRAcetam 500 MG TABLET (FP) PO SCH ×2 (10:40→21:20)
[2019-11-18] MEDS: APIXABAN 5 MG TABLET PO SCH ×2 (10:40→21:19)
[2019-11-18] MEDS: NYSTATIN 100,000 UNIT/GM TOPICAL CREAM 15 GM TUBE TP SCH ×2 (10:41→21:20)
[2019-11-18] MEDS: MINERAL OIL/PETROLAT/WATER TOPICAL CREAM 113 GM JAR TP SCH (10:41)
[2019-11-18] MEDS: SILVER SULFADIAZINE 1% TOP CREAM 50 GM JAR TP SCH (10:41)
[2019-11-18] MEDS: COLLAGENASE CLOSTRIDIUM HIST. 30 GRAMS TUBE TP SCH (10:41)
[2019-11-18] MEDS: MINERAL OIL/PETROLATUM,WHITE 3.5 GM TUBE OS SCH (21:20)
[2019-11-19] MEDS: FUROSEMIDE 40 MG TABLET (FP) PO SCH ×2 (05:38→15:10)
[2019-11-19] MEDS: INSULIN SLIDING SCALE (NOVOLOG) 1 VIAL SQ SCH ×3 (06:05→16:34)
[2019-11-19 08:05] LABS: BASO % 0.6 % (0-2.0); EOS % 1.9 % (0-4.5); HEMATOCRIT 24.2 % (32.4-45.2); HEMOGLOBIN 8.4 GM/dL (10.7-15.3); LYMPH % 5.7 % (8-40); MCH 37.7 pg (25.7-33.7); MCHC 34.8 g/dl (32.0-36.0); MEAN CELL VOLUME 108.3 fl (80-96); NEUT % 83.8 % (42.8-82.8); PLATELET COUNT 433 K/MM3 (134-434); RBC 2.24 M/mm3 (3.60-5.2); WHITE BLOOD COUNT 17.8 K/mm3 (4.0-10.0)
[2019-11-19 08:13] LABS: ALBUMIN 1.7 g/dl (3.4-5.0); BILIRUBIN,TOTAL 0.4 mg/dL (0.2-1); BLOOD UREA NITROGEN 89.2 mg/dL (7-18); CALCIUM 8.8 mg/dL (8.5-10.1); CREATININE 1.3 mg/dL (0.55-1.3); POTASSIUM 4.7 mmol/L (3.5-5.1); TOT PROT 6.3 g/dl (6.4-8.2)
[2019-11-19] MEDS ORDERED: PT OWN MED DRAWER 7, Y5N ONE (10:25)
[2019-11-19] MEDS: FLUCONAZOLE 100 MG TABLET (UD) PO SCH (10:33)
[2019-11-19] MEDS: levETIRAcetam 500 MG TABLET (FP) PO SCH ×2 (10:34→21:39)
[2019-11-19] MEDS: CARVEDILOL 12.5 MG TABLET (FP) PO SCH ×2 (10:34→21:40)
[2019-11-19] MEDS: APIXABAN 5 MG TABLET PO SCH ×2 (10:34→21:40)
[2019-11-19] MEDS: MINERAL OIL/PETROLAT/WATER TOPICAL CREAM 113 GM JAR TP SCH (10:35)
[2019-11-19] MEDS: HYDROXYUREA 500 MG CAPSULE PO SCH (10:35)
[2019-11-19] MEDS: COLLAGENASE CLOSTRIDIUM HIST. 30 GRAMS TUBE TP SCH (10:36)
[2019-11-19] MEDS: NYSTATIN 100,000 UNIT/GM TOPICAL CREAM 15 GM TUBE TP SCH ×2 (10:36→21:42)
[2019-11-19] MEDS: ZINC OXIDE/PETROLATUM,WHITE 1 APPLIC OINT...G. TP SCH ×2 (10:36→21:42)
[2019-11-19] MEDS: SILVER SULFADIAZINE 1% TOP CREAM 50 GM JAR TP SCH (10:36)
[2019-11-19 13:10] LABS: EPI CELLS 22 /uL (0-25.1); HYALINE CASTS 2 /uL (0-3.1); URINE APPEARANCE CLEAR; URINE BACTERIA 12 /uL (0-1359); URINE BILIRUBIN NEGATIVE (NEGATIVE); URINE COLOR YELLOW; URINE GLUCOSE (UA) NEGATIVE (NEGATIVE); URINE KETONE NEGATIVE (NEGATIVE); URINE LEUK ESTERASE 1+ (NEGATIVE); URINE NITRITE NEGATIVE (NEGATIVE); URINE PROTEIN 1+ (NEGATIVE); URINE RBC 160 /uL (0-23.9); URINE UROBILINOGEN 0.2 mg/dL (0.2-1.0); URINE WBC 44 /uL (0-25.8)
[2019-11-19 13:39] LABS: MACROCYTOSIS 1+; PLATELET ESTIMATE SLT INCREASE
[2019-11-19] MEDS: ARTIFICIAL TEARS (POLYVINYL ALCOHOL) OPTH DROPS OU PRN (21:40)
[2019-11-19] MEDS: MINERAL OIL/PETROLATUM,WHITE 3.5 GM TUBE OS SCH (21:41)
[2019-11-20] MEDS: FUROSEMIDE 40 MG TABLET (FP) PO SCH ×2 (05:37→14:00)
[2019-11-20] MEDS: INSULIN SLIDING SCALE (NOVOLOG) 1 VIAL SQ SCH ×3 (06:09→16:41)
[2019-11-20 09:01] LABS: HEMATOCRIT 26.7 % (32.4-45.2); HEMOGLOBIN 8.8 GM/dL (10.7-15.3); MCH 36.1 pg (25.7-33.7); MCHC 33.2 g/dl (32.0-36.0); MEAN CELL VOLUME 108.8 fl (80-96); MEAN PLT VOLUME 7.7 fl (7.5-11.1); PLATELET COUNT 466 K/MM3 (134-434); RBC 2.45 M/mm3 (3.60-5.2); RDW 18.2 % (11.6-15.6); WHITE BLOOD COUNT 17.8 K/mm3 (4.0-10.0)
[2019-11-20 09:17] LABS: BLOOD UREA NITROGEN 80.6 mg/dL (7-18); CALCIUM 8.7 mg/dL (8.5-10.1); CREATININE 1.3 mg/dL (0.55-1.3); POTASSIUM 4.8 mmol/L (3.5-5.1)
[2019-11-20] MEDS ORDERED: PT OWN MED DRAWER 7, Y5N ONE ×2 (09:43→10:00)
[2019-11-20] MEDS: MINERAL OIL/PETROLAT/WATER TOPICAL CREAM 113 GM JAR TP SCH (09:58)
[2019-11-20] MEDS: CARVEDILOL 12.5 MG TABLET (FP) PO SCH ×2 (09:58→21:54)
[2019-11-20] MEDS: FLUCONAZOLE 100 MG TABLET (UD) PO SCH (09:58)
[2019-11-20] MEDS: levETIRAcetam 500 MG TABLET (FP) PO SCH ×2 (09:58→21:54)
[2019-11-20] MEDS: APIXABAN 5 MG TABLET PO SCH ×2 (09:58→21:54)
[2019-11-20] MEDS: NYSTATIN 100,000 UNIT/GM TOPICAL CREAM 15 GM TUBE TP SCH ×2 (10:02→21:54)
[2019-11-20] MEDS: COLLAGENASE CLOSTRIDIUM HIST. 30 GRAMS TUBE TP SCH (10:03)
[2019-11-20] MEDS: ZINC OXIDE/PETROLATUM,WHITE 1 APPLIC OINT...G. TP SCH ×2 (10:03→21:54)
[2019-11-20] MEDS: SILVER SULFADIAZINE 1% TOP CREAM 50 GM JAR TP SCH (10:03)
[2019-11-20] MEDS: HYDROXYUREA 500 MG CAPSULE PO SCH (11:31)
[2019-11-20] MEDS: MINERAL OIL/PETROLATUM,WHITE 3.5 GM TUBE OS SCH (21:54)
[2019-11-21] MEDS: FUROSEMIDE 40 MG TABLET (FP) PO SCH ×2 (05:10→15:06)
[2019-11-21] MEDS: INSULIN SLIDING SCALE (NOVOLOG) 1 VIAL SQ SCH ×3 (06:19→17:24)
[2019-11-21 06:54] LABS: HEMATOCRIT 26.7 % (32.4-45.2); MCH 36.5 pg (25.7-33.7); MCHC 33.7 g/dl (32.0-36.0); MEAN CELL VOLUME 108.4 fl (80-96); PLATELET COUNT 524 K/MM3 (134-434); RBC 2.46 M/mm3 (3.60-5.2); RDW 18.2 % (11.6-15.6); WHITE BLOOD COUNT 14.4 K/mm3 (4.0-10.0)
[2019-11-21 07:14] LABS: BLOOD UREA NITROGEN 74.3 mg/dL (7-18); CALCIUM 8.5 mg/dL (8.5-10.1); CREATININE 1.3 mg/dL (0.55-1.3); POTASSIUM 4.7 mmol/L (3.5-5.1)
[2019-11-21] MEDS ORDERED: PT OWN MED DRAWER 7, Y5N ONE (10:29)
[2019-11-21] MEDS: CARVEDILOL 12.5 MG TABLET (FP) PO SCH ×2 (10:33→21:34)
[2019-11-21] MEDS: levETIRAcetam 500 MG TABLET (FP) PO SCH ×2 (10:34→21:34)
[2019-11-21] MEDS: APIXABAN 5 MG TABLET PO SCH (10:34)
[2019-11-21] MEDS: FLUCONAZOLE 100 MG TABLET (UD) PO SCH (10:34)
[2019-11-21] MEDS: HYDROXYUREA 500 MG CAPSULE PO SCH (10:34)
[2019-11-21] MEDS: MINERAL OIL/PETROLAT/WATER TOPICAL CREAM 113 GM JAR TP SCH (10:35)
[2019-11-21] MEDS: ZINC OXIDE/PETROLATUM,WHITE 1 APPLIC OINT...G. TP SCH ×2 (10:36→21:35)
[2019-11-21] MEDS: COLLAGENASE CLOSTRIDIUM HIST. 30 GRAMS TUBE TP SCH (10:36)
[2019-11-21] MEDS: SILVER SULFADIAZINE 1% TOP CREAM 50 GM JAR TP SCH (10:36)
[2019-11-21] MEDS: NYSTATIN 100,000 UNIT/GM TOPICAL CREAM 15 GM TUBE TP SCH ×2 (10:36→21:35)
[2019-11-21] MEDS: ACETAMINOPHEN 500 MG TABLET (FP) PO PRN (13:48)
[2019-11-21] MEDS: MINERAL OIL/PETROLATUM,WHITE 3.5 GM TUBE OS SCH (21:35)
[2019-11-22] MEDS: FUROSEMIDE 40 MG TABLET (FP) PO SCH ×2 (05:38→14:26)
[2019-11-22] MEDS: INSULIN SLIDING SCALE (NOVOLOG) 1 VIAL SQ SCH ×3 (06:36→16:49)
[2019-11-22 07:15] LABS: HEMATOCRIT 26.8 % (32.4-45.2); HEMOGLOBIN 9.1 GM/dL (10.7-15.3); MCH 36.4 pg (25.7-33.7); MCHC 33.8 g/dl (32.0-36.0); MEAN CELL VOLUME 107.6 fl (80-96); MEAN PLT VOLUME 8.2 fl (7.5-11.1); PLATELET COUNT 619 K/MM3 (134-434); RBC 2.49 M/mm3 (3.60-5.2); RDW 18.4 % (11.6-15.6); WHITE BLOOD COUNT 11.4 K/mm3 (4.0-10.0)
[2019-11-22 07:41] LABS: ALBUMIN 1.7 g/dl (3.4-5.0); CREATININE 1.1 mg/dL (0.55-1.3); MAGNESIUM 2.2 mg/dL (1.8-2.4); POTASSIUM 4.5 mmol/L (3.5-5.1); TOT PROT 6.4 g/dl (6.4-8.2)
[2019-11-22 08:01] LABS: INR 1.93 (0.83-1.09); PROTHROMBIN TIME (PATIENT) 22.9 SEC (9.7-13.0)
[2019-11-22 08:10] LABS: BILIRUBIN,TOTAL 0.5 mg/dL (0.2-1); BLOOD UREA NITROGEN 67.4 mg/dL (7-18); CALCIUM 8.5 mg/dL (8.5-10.1); PHOSPHOROUS 3.4 mg/dL (2.5-4.9)
[2019-11-22] MEDS: HYDROXYUREA 500 MG CAPSULE PO SCH (10:41)
[2019-11-22] MEDS: CARVEDILOL 12.5 MG TABLET (FP) PO SCH ×2 (10:49→21:23)
[2019-11-22] MEDS: levETIRAcetam 500 MG TABLET (FP) PO SCH ×2 (10:49→21:23)
[2019-11-22] MEDS: COLLAGENASE CLOSTRIDIUM HIST. 30 GRAMS TUBE TP SCH (10:54)
[2019-11-22] MEDS: ZINC OXIDE/PETROLATUM,WHITE 1 APPLIC OINT...G. TP SCH ×2 (10:54→21:23)
[2019-11-22] MEDS: MINERAL OIL/PETROLAT/WATER TOPICAL CREAM 113 GM JAR TP SCH (10:54)
[2019-11-22] MEDS: NYSTATIN 100,000 UNIT/GM TOPICAL CREAM 15 GM TUBE TP SCH ×2 (10:54→21:23)
[2019-11-22] MEDS: SILVER SULFADIAZINE 1% TOP CREAM 50 GM JAR TP SCH (10:54)
[2019-11-22] MEDS: MINERAL OIL/PETROLATUM,WHITE 3.5 GM TUBE OS SCH (21:23)
[2019-11-22] MEDS: ACETAMINOPHEN 500 MG TABLET (FP) PO PRN (21:24)
[2019-11-23] MEDS: INSULIN SLIDING SCALE (NOVOLOG) 1 VIAL SQ SCH ×3 (06:15→17:03)
[2019-11-23] MEDS: FUROSEMIDE 40 MG TABLET (FP) PO SCH ×2 (06:15→13:20)
[2019-11-23 07:16] LABS: EOS % 4.5 % (0-4.5); HEMATOCRIT 27.5 % (32.4-45.2); HEMOGLOBIN 9.1 GM/dL (10.7-15.3); LYMPH % 11.2 % (8-40); MCH 35.9 pg (25.7-33.7); MCHC 33.1 g/dl (32.0-36.0); MEAN CELL VOLUME 108.7 fl (80-96); MONO % 11.5 % (3.8-10.2); NEUT % 71.8 % (42.8-82.8); PLATELET COUNT 656 K/MM3 (134-434); RBC 2.53 M/mm3 (3.60-5.2); RDW 18.2 % (11.6-15.6); WHITE BLOOD COUNT 10.7 K/mm3 (4.0-10.0)
[2019-11-23 07:44] LABS: INR 1.57 (0.83-1.09); PROTHROMBIN TIME (PATIENT) 18.6 SEC (9.7-13.0)
[2019-11-23 07:44] LABS: ALBUMIN 1.5 g/dl (3.4-5.0); BILIRUBIN,TOTAL 0.5 mg/dL (0.2-1); BLOOD UREA NITROGEN 66.5 mg/dL (7-18); CALCIUM 8.2 mg/dL (8.5-10.1); CREATININE 1.2 mg/dL (0.55-1.3); MAGNESIUM 2.2 mg/dL (1.8-2.4); PHOSPHOROUS 3.4 mg/dL (2.5-4.9); POTASSIUM 3.9 mmol/L (3.5-5.1); TOT PROT 6.2 g/dl (6.4-8.2)
[2019-11-23 07:47] LABS: ACTIVATED PTT 27.8 SECONDS (25.2-36.5)
[2019-11-23] MEDS ORDERED: PT OWN MED DRAWER 7, Y5N ONE (10:06)
[2019-11-23] MEDS: CARVEDILOL 12.5 MG TABLET (FP) PO SCH ×2 (10:15→23:20)
[2019-11-23] MEDS: levETIRAcetam 500 MG TABLET (FP) PO SCH ×2 (10:15→23:20)
[2019-11-23] MEDS: NYSTATIN 100,000 UNIT/GM TOPICAL CREAM 15 GM TUBE TP SCH ×2 (10:16→23:20)
[2019-11-23] MEDS: SILVER SULFADIAZINE 1% TOP CREAM 50 GM JAR TP SCH (10:16)
[2019-11-23] MEDS: COLLAGENASE CLOSTRIDIUM HIST. 30 GRAMS TUBE TP SCH (10:16)
[2019-11-23] MEDS: HYDROXYUREA 500 MG CAPSULE PO SCH (10:16)
[2019-11-23] MEDS: MINERAL OIL/PETROLAT/WATER TOPICAL CREAM 113 GM JAR TP SCH (10:16)
[2019-11-23] MEDS: ZINC OXIDE/PETROLATUM,WHITE 1 APPLIC OINT...G. TP SCH ×2 (10:16→23:20)
[2019-11-23 12:06] LABS: ANISOCYTOSIS 1+; MACROCYTOSIS 2+; PLATELET ESTIMATE INCREASED
[2019-11-23] MEDS ORDERED: MEROPENEM 1 GM in DEXTROSE 5%-WATER 100 ML IVPB SCH (13:00)
[2019-11-23] MEDS ORDERED: DEXTROSE 5%-WATER 100 ML IVPB ONE ×2 (13:24→23:05)
[2019-11-23] MEDS ORDERED: MEROPENEM 1 GM VIAL (RESTRICTED TO ID) IVPB ONE ×2 (13:24→23:05)
[2019-11-23] MEDS ORDERED: VANCOMYCIN 1 GRAM (PRE-DOCKED) 1,000 MG/250 ML BAG IVPB ONE ×2 (14:00→16:32)
[2019-11-23] MEDS ORDERED: PROPOFOL 20 ML ONE (14:33)
[2019-11-23] MEDS ORDERED: ROCURONIUM BROMIDE 50 MG/5 ML SYRINGE ONE (14:35)
[2019-11-23] MEDS ORDERED: VANCOMYCIN 1,000 MG VIAL (RESTRICTED TO ID ONLY) IVPB ONE (15:23)
[2019-11-23] MEDS ORDERED: NEOSTIGMINE METHYLSULFATE 0.5 MG/ML - 10 ML MDV ONE (15:49)
[2019-11-23] MEDS ORDERED: morphine CARPU-JECT 2 MG/1 ML DISP.SYRIN IVPUSH PRN ×2 (16:23→16:32)
[2019-11-23] MEDS ORDERED: LACTATED RINGERS SOLUTION 1,000 ML IV SCH (16:30)
[2019-11-23] MEDS ORDERED: ARTIFICIAL TEARS (POLYVINYL ALCOHOL) OPTH DROPS OU PRN (16:32)
[2019-11-23] MEDS ORDERED: ACETAMINOPHEN 500 MG TABLET (FP) PO PRN (16:32)
[2019-11-23] MEDS: LACTATED RINGERS SOLUTION 1,000 ML IV SCH (17:27)
[2019-11-23] MEDS: MEROPENEM 1 GM in DEXTROSE 5%-WATER 100 ML IVPB SCH (21:30)
[2019-11-23] MEDS: APIXABAN 5 MG TABLET PO SCH (23:20)
[2019-11-23] MEDS: MINERAL OIL/PETROLATUM,WHITE 3.5 GM TUBE OS SCH (23:20)
[2019-11-24] MEDS ORDERED: MEROPENEM 1 GM VIAL (RESTRICTED TO ID) IVPB ONE ×3 (06:27→16:32)
[2019-11-24] MEDS ORDERED: DEXTROSE 5%-WATER 100 ML IVPB ONE ×2 (06:27→16:32)
[2019-11-24] MEDS: LACTATED RINGERS SOLUTION 1,000 ML IV SCH (06:39)
[2019-11-24] MEDS: FUROSEMIDE 40 MG TABLET (FP) PO SCH ×2 (06:39→13:42)
[2019-11-24] MEDS: MEROPENEM 1 GM in DEXTROSE 5%-WATER 100 ML IVPB SCH ×3 (06:39→17:56)
[2019-11-24] MEDS: INSULIN SLIDING SCALE (NOVOLOG) 1 VIAL SQ SCH ×3 (06:46→17:53)
[2019-11-24 07:41] LABS: BASO % 1.2 % (0-2.0); EOS % 5.2 % (0-4.5); HEMATOCRIT 26.6 % (32.4-45.2); HEMOGLOBIN 8.9 GM/dL (10.7-15.3); LYMPH % 12.6 % (8-40); MCH 36.7 pg (25.7-33.7); MCHC 33.3 g/dl (32.0-36.0); MEAN CELL VOLUME 110.1 fl (80-96); MEAN PLT VOLUME 8.4 fl (7.5-11.1); MONO % 12.1 % (3.8-10.2); NEUT % 68.9 % (42.8-82.8); PLATELET COUNT 598 K/MM3 (134-434); RBC 2.41 M/mm3 (3.60-5.2); RDW 18.5 % (11.6-15.6); WHITE BLOOD COUNT 11.6 K/mm3 (4.0-10.0)
[2019-11-24] MEDS ORDERED: PT OWN MED DRAWER 7, Y5N ONE (08:50)
[2019-11-24] MEDS: CARVEDILOL 12.5 MG TABLET (FP) PO SCH ×2 (09:15→21:29)
[2019-11-24] MEDS: APIXABAN 5 MG TABLET PO SCH ×2 (09:15→21:29)
[2019-11-24] MEDS: MINERAL OIL/PETROLAT/WATER TOPICAL CREAM 113 GM JAR TP SCH (09:15)
[2019-11-24] MEDS: levETIRAcetam 500 MG TABLET (FP) PO SCH ×2 (09:16→21:36)
[2019-11-24] MEDS: HYDROXYUREA 500 MG CAPSULE PO SCH (09:16)
[2019-11-24] MEDS: NYSTATIN 100,000 UNIT/GM TOPICAL CREAM 15 GM TUBE TP SCH ×2 (09:17→21:44)
[2019-11-24] MEDS: ZINC OXIDE/PETROLATUM,WHITE 1 APPLIC OINT...G. TP SCH ×2 (09:19→23:00)
[2019-11-24] MEDS: MINERAL OIL/PETROLATUM,WHITE 3.5 GM TUBE OS SCH (21:41)
[2019-11-25] MEDS ORDERED: MEROPENEM 1 GM VIAL (RESTRICTED TO ID) IVPB ONE ×2 (01:23→10:28)
[2019-11-25] MEDS ORDERED: DEXTROSE 5%-WATER 100 ML IVPB ONE ×2 (01:24→10:29)
[2019-11-25] MEDS: MEROPENEM 1 GM in DEXTROSE 5%-WATER 100 ML IVPB SCH ×2 (01:27→10:42)
[2019-11-25] MEDS: FUROSEMIDE 40 MG TABLET (FP) PO SCH ×2 (05:55→14:32)
[2019-11-25] MEDS: INSULIN SLIDING SCALE (NOVOLOG) 1 VIAL SQ SCH ×2 (06:08→12:01)
[2019-11-25 08:10] LABS: EOS % 6.3 % (0-4.5); HEMATOCRIT 24.9 % (32.4-45.2); HEMOGLOBIN 8.5 GM/dL (10.7-15.3); LYMPH % 12.3 % (8-40); MCH 37.1 pg (25.7-33.7); MCHC 34.3 g/dl (32.0-36.0); MEAN CELL VOLUME 108.2 fl (80-96); MEAN PLT VOLUME 8.3 fl (7.5-11.1); MONO % 13.4 % (3.8-10.2); PLATELET COUNT 703 K/MM3 (134-434); RDW 18.1 % (11.6-15.6); WHITE BLOOD COUNT 9.4 K/mm3 (4.0-10.0)
[2019-11-25 08:29] LABS: BLOOD UREA NITROGEN 59.7 mg/dL (7-18); CREATININE 1.2 mg/dL (0.55-1.3); POTASSIUM 4.9 mmol/L (3.5-5.1)
[2019-11-25] MEDS: CARVEDILOL 12.5 MG TABLET (FP) PO SCH (10:42)
[2019-11-25] MEDS: ZINC OXIDE/PETROLATUM,WHITE 1 APPLIC OINT...G. TP SCH (10:42)
[2019-11-25] MEDS: APIXABAN 5 MG TABLET PO SCH (10:42)
[2019-11-25] MEDS: NYSTATIN 100,000 UNIT/GM TOPICAL CREAM 15 GM TUBE TP SCH (10:42)
[2019-11-25] MEDS: MINERAL OIL/PETROLAT/WATER TOPICAL CREAM 113 GM JAR TP SCH (10:42)
[2019-11-25] MEDS: levETIRAcetam 500 MG TABLET (FP) PO SCH (10:42)
[2019-11-25] MEDS ORDERED: PT OWN MED DRAWER 7, Y5N ONE (10:44)
[2019-11-25] MEDS: HYDROXYUREA 500 MG CAPSULE PO SCH (10:49)
[2019-11-25 14:23] VITALS: BP 117/71; PULSE 114; TEMP 98.7
== END 2019-11-25 16:00 | disposition hospice, inpatient (51) | DRG 981 ==
LOC: JER 20:55 → JERBED 23:42 → JICU-2 10-07 09:52 → J4W 10-13 19:24 → JICU 10-24 20:47 → J4S 10-26 22:12
PROVIDERS: ADMIT Internal Medicine Pulmonary Disease; ATTEND Internal Medicine
PROC: 05HN33Z Insertion of Infusion Device into Left Internal Jugular Vein, Percutaneous Approach (ICD-10-PCS; principal; 2019-10-07)
PROC: 0KBP0ZZ Excision of Left Hip Muscle, Open Approach (ICD-10-PCS; 2019-10-07)
PROC: 0KBN0ZZ Excision of Right Hip Muscle, Open Approach (ICD-10-PCS; 2019-10-07)
PROC: B544ZZA Ultrasonography of Left Jugular Veins, Guidance (ICD-10-PCS; 2019-10-07)
PROC: 5A09558 Assistance with Respiratory Ventilation, Greater than 96 Consecutive Hours, Intermittent Positive Airway Pressure (ICD-10-PCS; 2019-10-07)
DX: I13.0 Hypertensive heart and chronic kidney disease with heart failure and stage 1 through stage 4 chronic kidney disease, or unspecified chronic kidney disease (principal); J96.21 Acute and chronic respiratory failure with hypoxia; G93.41 Metabolic encephalopathy; J18.9 Pneumonia, unspecified organism; I50.43 Acute on chronic combined systolic (congestive) and diastolic (congestive) heart failure; J96.22 Acute and chronic respiratory failure with hypercapnia; E87.2 Acidosis; N39.0 Urinary tract infection, site not specified; J98.11 Atelectasis; I24.8 Other forms of acute ischemic heart disease; I48.19 Other persistent atrial fibrillation; L03.317 Cellulitis of buttock; N17.9 Acute kidney failure, unspecified; E87.3 Alkalosis; E72.20 Disorder of urea cycle metabolism, unspecified; I47.2 Ventricular tachycardia; B49 Unspecified mycosis; E87.0 Hyperosmolality and hypernatremia; Z16.21 Resistance to vancomycin; I25.10 Atherosclerotic heart disease of native coronary artery without angina pectoris; E11.22 Type 2 diabetes mellitus with diabetic chronic kidney disease; N18.3 Chronic kidney disease, stage 3 (moderate); E78.5 Hyperlipidemia, unspecified; G40.909 Epilepsy, unspecified, not intractable, without status epilepticus; D46.9 Myelodysplastic syndrome, unspecified; F03.90 Unspecified dementia, unspecified severity, without behavioral disturbance, psychotic disturbance, mood disturbance, and anxiety; I27.81 Cor pulmonale (chronic); R91.8 Other nonspecific abnormal finding of lung field; I27.20 Pulmonary hypertension, unspecified; R59.0 Localized enlarged lymph nodes; R74.0 Nonspecific elevation of levels of transaminase and lactic acid dehydrogenase [LDH]; R41.82 Altered mental status, unspecified; I07.1 Rheumatic tricuspid insufficiency; H11.30 Conjunctival hemorrhage, unspecified eye; G47.33 Obstructive sleep apnea (adult) (pediatric); L89.150 Pressure ulcer of sacral region, unstageable; K74.60 Unspecified cirrhosis of liver; D32.0 Benign neoplasm of cerebral meninges; R50.9 Fever, unspecified; R33.8 Other retention of urine; Z79.01 Long term (current) use of anticoagulants; Z86.73 Personal history of transient ischemic attack (TIA), and cerebral infarction without residual deficits; Z88.0 Allergy status to penicillin
CPT/HCPCS: 36415; 36600; 70450-TC; 70551-TC; 71045-TC-FY; 71250-TC; 74150-TC; 76775-TC; 76856-TC; 80048; 80053; 81003; 82140; 82272; 82375; 82570; 82607; 82728; 82746; 82803; 82962; 83050; 83516; 83520; 83605; 83615; 83735; 83880; 84100; 84155; 84156; 84165; 84484; 85025; 85027; 85610; 85730; 86038; 86140; 86225; 86256; 86704; 86706; 86707; 86708; 86709; 86769; 86850; 86900; 86901; 87040; 87086; 87186; 87324; 87340; 87449; 87522; 88304-TC; 90670; 93005; 93010; 93306-TC; 94010; 94640; 94660; 94760; 97116-GP; 97161-GP; 99285-25; J0131; J1644; J3243; J8999; U0003